=== PATIENT | male | born 1960 | race Caucasian/White ===

== ENCOUNTER 2018-08-26 12:35 | Outpatient (CLI) | payer BC, SELFPAY ==
--- NOTE | 2018-08-26 12:00 | DI.CT_ITS ---
SYMPTOMS/DIAGNOSIS: HEMOPTYSIS, COUG, R04.2 PE CHEST CTA: CT angiography was performed with multi slice acquisition and multi planar and 3D reconstruction. The study was carried out according to the usual protocol with an intravenous administration of 100 cc's of Omnipaque 350. There is no evidence of pulmonary embolic disease. There are two regions of increased density in the right lower lobe which could represent a pneumonitis. The possibility of masses can not be excluded. Aside from small regions of dependent atelectasis, no other regions of abnormality are apparent. There is no pleural effusion. There is no evidence of adenopathy. The heart is not enlarged. There is no evidence of right ventricular strain. There is no evidence of an aortic aneurysm. SUMMARY: Regions of increased density in the right lower lobe could represent a multi-focal pneumonitis. The possibility of a mass or masses can not be excluded and follow up imaging to clearing is recommended.
[2018-08-26] MEDS: Omnipaque 350 MG/ML 100 ML BTL IJ (12:47)
== END 2018-08-26 12:55 ==
PROVIDERS: PCP Internal Medicine; Visit Provider Internal Medicine
DX: R04.2 Hemoptysis; Z91.89 Other specified personal risk factors, not elsewhere classified; R05 Cough; R91.8 Other nonspecific abnormal finding of lung field
CPT/HCPCS: 36415; 71275; 82565; J3490

== ENCOUNTER 2019-05-27 06:58 | Outpatient (CLI) | payer BC, SELFPAY ==
[2019-05-27 14:02] LABS: CREATININE 1.17 mg/dL (0.70-1.30)
[2019-05-27 14:37] LABS: D-Dimer > 7500 ng/mlFEU (<500)
== END 2019-05-27 07:18 ==
PROVIDERS: PCP Internal Medicine; Visit Provider Family Medicine
DX: R06.09 Other forms of dyspnea (principal)
CPT/HCPCS: 36415; 82565; 85379

== ENCOUNTER 2019-05-27 07:25 | Outpatient (CLI) | payer BC, SELFPAY ==
--- NOTE | 2019-05-27 07:15 | DI.RAD_ITS ---
EXAM: XR CHEST 2V PA LATERAL CLINICAL HISTORY: Dyspnea, cough, history of PE, R06.00, ? PE TECHNIQUE: 2D digital imaging was performed. COMPARISON: CHEST FOR PULMONARY EMBOLUS from 03/01/2015 PORTABLE CHEST ONE VIEW from 03/01/2015 CT CHEST PE CTA from 08/26/2018 FINDINGS: MEDIASTINUM: Normal. HEART: Normal. PULMONARY VASCULATURE: Normal. LUNGS: There is a faint opacity in the right lung base laterally. The lungs are otherwise clear. PLEURAL SPACE: No pleural effusion or pneumothorax. BONE:Normal for the patient's age. OTHER FINDINGS:Normal. IMPRESSION: Faint opacity in the right lung base laterally. This may represent an infiltrate or mass. A CT scan of the chest is recommended for further evaluation. DATA REPOSITORY: RADIATION DOSE DELIVERED:
== END 2019-05-27 07:45 ==
PROVIDERS: PCP Internal Medicine; Visit Provider Family Medicine
DX: R06.09 Other forms of dyspnea (principal); R05 Cough; R91.8 Other nonspecific abnormal finding of lung field; Z86.711 Personal history of pulmonary embolism
CPT/HCPCS: 71046

== ENCOUNTER 2019-05-27 08:35 | Outpatient (CLI) | payer BC, SELFPAY ==
[2019-05-30 08:53] LABS: COVID-19 RT-PCR Result Not Detected (NotDetected)
== END 2019-05-27 08:55 ==
PROVIDERS: PCP Internal Medicine; Visit Provider Family Medicine
DX: R05 Cough (principal); R06.02 Shortness of breath
CPT/HCPCS: U0003

== ENCOUNTER 2019-05-27 17:02 | Emergency (ER) | payer BC, SELFPAY ==
[2019-05-27 17:10] VITALS: BP 160/95; PULSE 67; RESP 22; TEMP 36.8; O2SAT 99
--- NOTE | 2019-05-27 17:30 | DI.CT_ITS ---
EXAM: CT CHEST PE CTA CLINICAL HISTORY: chest pain right, sob, prior PE remotely TECHNIQUE: Axial CT angiography was performed with multi-slice acquisition and multi-planar and/or 3 D reconstructions. COMPARISON: CT CHEST PE CTA from 08/26/2018 FINDINGS: CT angiography was performed with a bolus infusion of 70 cc of Omnipaque 350. Images obtained throug h the upper abdomen show grossly unremarkable appearance of visualized portions of liver, spleen, eugene creas, and adrenals. No mediastinal or hilar adenopathy. No axillary or supraclavicular adenopathy. There are multiple pulmonary emboli, no central saddle embolus seen but emboli are present at the tristian ctions of right and left pulmonary arteries and lobar pulmonary arteries. There is an area of consol idation in the right lung base peripherally which has appearance consistent with pulmonary infarction . There is evidence of right heart strain with right ventricular diameter greater than left ventricu lar diameter and mild dilatation main pulmonary artery at 32 millimeters. No additional significant intrapulmonary abnormality seen. Tracheobronchial tree appears intact. IMPRESSION: Multiple lobar, segmental, and subsegmental pulmonary emboli with evidence of right heart strain as d escribed above the. Right basilar peripheral presumed pulmonary infarct noted.
[2019-05-27 17:34] LABS: Abs Immature Grans 0.02 k/cumm (0.0-0.09); Absolute Basophil Count 0.03 k/cumm (0.0-0.2); Absolute Eosinophil Count 0.14 k/cumm (0.0-0.7); Absolute Lymphocyte Count 2.45 k/cumm (1.2-3.4); Absolute Monocyte Count 0.63 k/cumm (0.11-0.7); Absolute Neutrophil Count 4.56 k/cumm (1.2-6.7); Basophils % 0.4; Eosinophils % 1.8; HCT 43.3 % (40.0-50.0); HGB 15.3 g/dL (13.5-17.5); Immature Grans % 0.3 %; Lymphocytes % 31.3; Mean Corp. HGB Concentration 35.3 g/dL (32.0-36.0); Mean Corpuscular Hemoglobin 30.3 pg (27.0-33.0); Mean Corpuscular Volume 85.7 fL (80-95); Mean Platelet Volume 10.5 fL (8.0-11.0); Neutrophils % 58.2; Platelet Count 245 x1000/uL (130-400); RBC 5.05 m/cumm (4.50-6.00); RBC Distribution Width 12.2 % (11.8-14.1); White Blood Cell Count 7.83 k/cumm (4.4-10.8)
[2019-05-27] MEDS: Omnipaque 350 MG/ML 100 ML BTL IJ (17:47)
[2019-05-27 17:52] LABS: ALT 24 U/L (16-63); AST 16 U/L (15-37); Albumin 3.7 g/dL (3.4-5.0); Alkaline Phosphatase 60 U/L (46-116); Anion Gap 9.2 mmol/L (3-11); BUN 24 mg/dL (7-18); Bilirubin, Total 0.6 mg/dL (0.2-1.0); CO2 28.8 mmol/L (21.0-32.0); CREATININE 1.08 mg/dL (0.70-1.30); Calcium 9.5 mg/dL (8.5-10.1); Chloride 103 mmol/L (98-107); Glucose 104 mg/dL (74-106); Potassium 4.3 mmol/L (3.5-5.1); Sodium 141 mmol/L (136-145); Total Protein 8.1 g/dL (6.4-8.2)
[2019-05-27 18:01] LABS: Troponin I 0.14 ng/Ml (<0.06)
[2019-05-27 18:06] VITALS: BP 139/88; PULSE 66; RESP 21; O2SAT 97
--- NOTE | 2019-05-27 18:18 | ED.GENADUL_ITS ---
Discharge Plan Disposition Patient Disposition: [facility] Condition: Serious Discharge Details Chief Complaint: RespSymp Clinical Impression: Pulmonary embolism, Elevated troponin Primary Care Provider: Gabi Perez ED Provider: Shoaib Saenz Home Meds and New Rx's Prescriptions: No Action [facility] 1 unit .Route QWEEK PRN (Reason: RIGHT BUTTOCK PAIN) Qty: 16 RF: 3 bupropion HCl 150 mg tablet extended release 24 hr 150 mg PO QAM Qty: 90 RF: 3 aspirin 81 MG tablet,chewable 81 mg PO DAILY RF: 0 apixaban 5 mg tablet 5 mg PO BID RF: 0 Discharge Data Discharge Date/Time-TO BE ENTERED AT DEPARTURE: 05/27/19 20:05 Medical Decision Making 59-year-old male with prior history of pulmonary embolism, hypercoagulable factor VIII, not currently anticoagulated, here with shortness of breath and right-sided chest pain for the past 4 days. Patient is not hypoxic but he is tachypneic. Patient mildly hypertensive on arrival. CT of the chest was interpreted by radiology: Large pulmonary emboli bilaterally with evidence of right heart strain. Possible pulmonary infarct in the right lower lobe. Screening ECG was reviewed and interpreted by me: Sinus rhythm 67 bpm, left axis deviation, no STEMI, flattening of T waves V2 and V3 which are new compared to prior from 03/01/2015. Will initiate treatment with Lovenox 1 mg/kg subcutaneous. Troponin is elevated. BNP was sent specifically as prognostic indicator of severity clot burden. 18:30 --I contacted [facility] transfer center to request emergent transfer. Awaiting callback. CT already sent for review. 19:08 --I spoke with Dr. Meyer and discussed ED presentation and course including diagnostics, he reviewed CT scan, he agrees with transfer and will accept on behalf of Dr. Figueredo. Awaiting bed placement. HPI General Mode of arrival: ambulatory . Date/Time Provider Initiated Documentation: 05/27/19 17:07 . Limitations to Documentation: no limitations . Information obtained by: patient . HPI Narrative: 59-year-old male with prior history of pulmonary embolism, factor VIII hypercoagulability, here with chief complaint of shortness of breath. Shortness of breath started 4 days ago and has persisted. Symptoms are moderate to severe and worse with exertion. He has associated moderate to severe right-sided chest pain that was worse yesterday. Improved today. He does note temperature of 100.0 that lasted for 30 seconds a couple of nights ago. No fever now. No recent long distance travel and no known sick contacts related to COVID-19 illness. Related Data Home Medications Medication Instructions Recorded Confirmed aspirin 81 mg PO DAILY tab-cap 09/22/17 05/27/19 bupropion HCl 150 mg 24 hr tablet, 150 mg PO QAM #90 tab 10/13/18 05/27/19 extended release [facility] 1 unit .ROUTE QWEEK PRN #16 unit 03/10/19 05/26/19 apixaban 5 mg tablet 5 mg PO BID 05/30/19 Previous Rx's Medication Instructions Recorded bupropion HCl 150 mg 24 hr tablet, 150 mg PO QAM #90 tab 10/13/18 extended release [facility] 1 unit .ROUTE QWEEK PRN #16 unit 03/10/19 Allergies Allergy/AdvReac Type Severity Reaction Status Date / Time Sulfa (Sulfonamide Allergy Unknown unknown Verified 05/27/19 17:19 Antibiotics) General Stated Complaint: RespSymp MOSHE: 3 Review of Systems All systems reviewed & are unremarkable except as noted in HPI and below Constitutional Constitutional: Reports as per HPI Cardiovascular Cardiovascular: Reports as per HPI Respiratory Respiratory: Reports as per HPI [facility] Medical History Depressive disorder, not elsewhere classified (Acute 05/27/12) Surgical History debridement, rgt ankle (08/30/14) Dr. Dillon open removal loose body, rgt ankle (08/30/14) Family History Mother , stroke at age 54. Stroke Father No problems noted. 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 What type of physical activity do you participate in: regular exercise Frequency: 5-6 times per week Seatbelt use: always Drive intox or ride w/intox truck driver salesperson: No Working smoke detector in home: Yes Fire extinguisher in home: Yes Carbon monox detector in home: Yes Do you feel safe at home: Yes Do you feel safe in your relationship?: Yes Exam Const General: cooperative HENMT Mouth: moist mucous membranes Eyes Conjunctivae: normal conjunctivae Sclera: normal sclerae Neck Neck: trachea midline and supple Resp Auscultation: clear to auscultation bilaterally, no rales, no rhonchi and no wheezes Cardio Jugular venous pressure: no JVD Rate: regular rate and not tachycardic Rhythm: regular rhythm GI Palpation: soft, not firm, no guarding, no masses, not rigid and nontender Skin General skin exam: no rashes or lesions noted Neuro General: patient alert, patient awake, patient oriented x3 and tone normal Extrem General: no calf tenderness and no edema Psych Appearance: grossly normal Mental Status: mental status grossly normal Course Vital Signs Vital signs: Vital Signs Temperature 36.8 C 05/27/19 17:10 Pulse 67 05/27/19 17:10 Respiratory Rate 22 05/27/19 17:10 Blood Pressure 160/95 H 05/27/19 17:10 Pulse Oximetry 99 05/27/19 17:10 Temperature 36.8 C 05/27/19 17:10 Pulse 66 05/27/19 18:06 Respiratory Rate 21 05/27/19 18:06 Respiratory Effort 05/27/19 17:45 Respiratory Depth Normal 05/27/19 17:45 Blood Pressure 139/88 05/27/19 18:06 Pulse Oximetry 97 05/27/19 18:06 Oxygen Delivery Method Room Air 05/27/19 18:06 Oxygen Flow Rate 0 05/27/19 18:06 Pain Level 3 05/27/19 17:10 Lab/Test Results Lab/Test Results: Laboratory Tests Range/Units 05/27/19 05/27/19 17:25 17:25 WBC (4.4-10.8) k/cumm 7.83 RBC (4.50-6.00) m/cumm 5.05 Hgb (13.5-17.5) g/dL 15.3 Hct (40.0-50.0) % 43.3 MCV (80-95) fL 85.7 MCH (27.0-33.0) pg 30.3 MCHC (32.0-36.0) g/dL 35.3 RDW (11.8-14.1) % 12.2 Plt Count (130-400) x1000/uL 245 MPV (8.0-11.0) fL 10.5 Immature Gran % % 0.3 Neutrophils % 58.2 Lymphocytes % 31.3 Monocytes % 8.0 Eosinophils % 1.8 Basophils % 0.4 Absolute Neutrophils (1.2-6.7) k/cumm 4.56 Absolute Lymphocytes (1.2-3.4) k/cumm 2.45 Absolute Monocytes (0.11-0.7) k/cumm 0.63 Absolute Eosinophils (0.0-0.7) k/cumm 0.14 Absolute Basophils (0.0-0.2) k/cumm 0.03 Sodium (136-145) mmol/L 141 Potassium (3.5-5.1) mmol/L 4.3 Chloride (98-107) mmol/L 103 Carbon Dioxide (21.0-32.0) mmol/L 28.8 Anion Gap (3-11) mmol/L 9.2 BUN (7-18) mg/dL 24 H Creatinine (0.70-1.30) mg/dL 1.08 Estimated GFR/1.73 m2 (mL/min/1.73m2) >= 60.00 Glucose (74-106) mg/dL 104 Calcium (8.5-10.1) mg/dL 9.5 Total Bilirubin (0.2-1.0) mg/dL 0.6 AST (15-37) U/L 16 ALT (16-63) U/L 24 Alkaline Phosphatase (46-116) U/L 60 Troponin I (<0.06) ng/Ml 0.14 H* Total Protein (6.4-8.2) g/dL 8.1 Albumin (3.4-5.0) g/dL 3.7 Critical Care Time Critical Care Time Critical Care Time: Yes Total Critical Care Time: 45 Attestation: I spent greater than 45 minutes addressing this patient's immediate life threats
--- NOTE | 2019-05-27 18:23 | DI.VRAD_ITS ---
Addendum created by Augustus Begum MD on 05/27/2019 6:31:14 PM EDT This report contains findings that may be critical to patient care. The findings were verbally communicated via telephone conference with CLOVER Kay at 6:30 PM EDT on 05/27/2019. The findings were acknowledged and understood. Initial report created on 05/27/2019 6:22:46 PM EDT PROCEDURE INFORMATION: Exam: CT Angiography Chest With Contrast Exam date and time: 05/27/2019 5:35 PM Age: 59 years old Clinical indication: Pain and abnormal findings; Abnormal diagnostic tests; Elevated d-dimer; Shortness of breath; Right-sided chest pain; Patient HX: Chest pain right, SOB, prior pe remotely TECHNIQUE: Imaging protocol: Computed tomographic angiography of the chest with intravenous contrast. 3D rendering: MIP and/or 3D reconstructed images were created by the technologist. COMPARISON: CT CHEST PE CTA 08/26/2018 12:37 PM FINDINGS: There are multiple large pulmonary emboli bilaterally. No central saddle embolus. There is suspected right ventricular strain. The RV/LV is approximately 1.4. The thoracic aorta is unremarkable without aneurysm or dissection. There is a wedge-shaped pleural-based opacity at the right base suspicious for a pulmonary infarct. No pleural effusion or pneumothorax. The visualized abdominal structures are unremarkable. No fracture. IMPRESSION: 1. Large pulmonary emboli bilaterally with evidence of right heart strain. 2. Possible pulmonary infarct in the right lower lobe. Dictated and Authenticated by: Augustus Begum MD. Ordering:SIRENA Cramer MD
[2019-05-27 18:25] LABS: NT-proBNP 794 pg/mL (<300)
--- NOTE | 2019-05-27 18:27 | NUR.NOTE ---
provider in with pt giving update on CT results. pt yelling and cursing loudly, told provider to come back. continued to curse and banged wall.
[2019-05-27] MEDS: Enoxaparin 80 MG/0.8 ML SYR 75 MG SC (18:52)
[2019-05-27 18:53] VITALS: BP 166/92; RESP 18; O2SAT 96
--- NOTE | 2019-05-27 19:43 | NUR.NOTE ---
report given to Cassei on 4E at [facility]. pt will be going to [facility]
[2019-05-27 19:48] VITALS: BP 148/96; PULSE 70; RESP 18; O2SAT 96
[2019-05-27] MEDS: LORazepam 0.5 MG TAB PO (19:52)
== END 2019-05-27 20:05 | disposition short-term general hospital (02) ==
PROVIDERS: Emergency Provider Student in an Organized Health Care Education/Training Program; PCP Internal Medicine
DX: I26.99 Other pulmonary embolism without acute cor pulmonale (principal); R74.8 Abnormal levels of other serum enzymes
CPT/HCPCS: 71275; 80053; 93005; 96372; 99285; 99291; 83880; 84484; 85025; 93010; J1650; J3490

== ENCOUNTER 2019-12-27 03:43 | Outpatient (CLI) | payer BC, SELFPAY ==
[2019-12-30 20:58] LABS: Patient Race White; SARS-CoV-2 RNA Undetected (Undetected); SARS-CoV-2 Specimen Source Nasal
== END 2019-12-27 04:03 ==
PROVIDERS: PCP Internal Medicine; Visit Provider Family Medicine
DX: J06.9 Acute upper respiratory infection, unspecified (principal)
CPT/HCPCS: U0003

== ENCOUNTER 2020-06-12 02:32 | Outpatient (CLI) | payer BC, SELFPAY ==
[2020-06-12 14:43] LABS: Calculated LDL 128 mg/dL (<100); Cholesterol 215 mg/dL (<200); HDL Cholesterol 61 mg/dL (40-60); TSH (W/Ref FT4) 2.89 uIU/mL (0.36-3.74); Triglyceride 130 mg/dL (<150)
== END 2020-06-12 02:33 | disposition home or self-care (01) ==
LOC: LBO 02:32
PROVIDERS: PCP Internal Medicine; Visit Provider Internal Medicine
DX: E78.00 Pure hypercholesterolemia, unspecified (principal); R79.89 Other specified abnormal findings of blood chemistry
CPT/HCPCS: 36415; 80061; 84443

== ENCOUNTER 2021-07-22 10:32 | Outpatient (REF) | payer BC, SELFPAY ==
[2021-07-25 11:14] LABS: Chlamydia Result Negative (Negative); GC Result Negative (Negative)
== END 2021-07-22 10:33 | disposition home or self-care (01) ==
LOC: LBN 10:32
PROVIDERS: Family Medicine; PCP Internal Medicine; Referring Provider Internal Medicine; Visit Provider Internal Medicine
DX: Z11.3 Encounter for screening for infections with a predominantly sexual mode of transmission (principal)
CPT/HCPCS: 87491; 87591

== ENCOUNTER 2021-07-25 04:03 | Outpatient (CLI) | payer BC, SELFPAY ==
[2021-07-26 10:00] LABS: HIV-1/2 Ag & Ab Screen Negative (Negative)
[2021-07-26 10:28] LABS: Syphilis Serology (RPR) Negative (Negative)
[2021-07-26 10:48] LABS: HBs Antibody, Qual Negative (See Note); HBs Antibody, Quant <3.1 mIU/mL (See Note); Hepatitis B Core Antibody Negative (Negative); Hepatitis B surface Ag Negative (Negative); Hepatitis C Ab w Rflx HCV PCR Negative (Negative)
== END 2021-07-25 04:04 | disposition home or self-care (01) ==
LOC: LBO 04:03
PROVIDERS: Absent Provider Family Medicine; PCP Internal Medicine; Visit Provider Family Medicine
DX: Z11.3 Encounter for screening for infections with a predominantly sexual mode of transmission (principal); Z11.4 Encounter for screening for human immunodeficiency virus [HIV]; Z11.59 Encounter for screening for other viral diseases
CPT/HCPCS: 36415; 86704; 86706; 86803; 87340; 87389; 86592

== ENCOUNTER 2021-11-17 08:20 | Emergency (ER) | payer BC, SELFPAY ==
[2021-11-17 08:58] VITALS: BP 138/110; PULSE 98; RESP 14; TEMP 36.8; O2SAT 96
--- NOTE | 2021-11-17 11:31 | W.ED.GENAD ---
Discharge Plan Disposition Patient Disposition: HOME Condition: Stable Discharge Details Clinical Impression: Lumbar radiculopathy Primary Care Provider: Gabi Perez ED Provider: Riana Martines Home Meds and New Rx's Prescriptions: New dexamethasone [Decadron] 4 mg tablet 4 mg PO DAILY Qty: 14 0RF Rx Instructions: 1 tab daily for 10 days, 1/2 tablet day for 7 days and dc morphine 15 mg tablet 15 mg PO BID PRNQty: 10 0RF Continued cyclobenzaprine 10 mg tablet 10 mg PO TID PRN (Reason: muscle spasm) Qty: 30 0RF gabapentin 300 mg capsule 300 mg PO TID Qty: 90 0RF Rx Instructions: Start with 300 mg once daily, then increase as tolerated to twice daily and three times daily apixaban 5 mg tablet 5 mg PO BID Qty: 180 3RF prednisone 50 mg tablet 50 mg PO DAILY Qty: 7 0RF Discharge Instructions Additional Instructions: take decadron as prescribed morphine is addictive and should be used sparingly. do not operate your vehicle for 8 hours after taking this medication no lifting >5 lbs pcp recheck tomorrow i've attempted to order an oupatient MRI for you, however generally needs authorization if your pain worsens, you develop fever, you have retention of urine, or weakness to your extremities, please return to ED for reassessment Referrals: Gabi Perez MD [Primary Care Provider] - 1 day Medical Decision Making Patient was made aware that he likely will need an MRI at this point, however we do not have the ability in the hospital on weekends to perform this imaging test Patient immediately states this is a waste of my time, this will now cost $25,000 for nothing Any patient aware that we would still like to assess him and treat his pain and then decide the next steps, patient continues to repeat this is a waste of my time He has no obvious signs of cauda equina syndrome clinically on my assessment, however patient was relatively uncooperative and quite flustered and difficult to assess I offered to treat patient with pain medication and let him know that if he had arrived at the very least we can make him more comfortable and she tells me that this is ridiculous Given patient's level of pain and exam findings, I did order morphine and Decadron and made an attempt to order an outpatient MRI for tomorrow Has also made aware that he can return tomorrow and MRI would be available at this point versus admission to hospital for pain control, unfortunately examining this patient was a challenge and as there was no clear evidence of cauda equina syndrome clinically, he was discharged home with pain medication and urged to follow-up closely in the outpatient setting DTRs are intact, strength and sensation was intact distally, patient has reproducible lower back pain without any clear evidence of trauma or bruising Or weakness patient was ambulatory into the emergency department without notable foot drop or weakness, holding his back and hunched over in pain Medical Records Medical records reviewed: Yes I reviewed the patient's medical records. HPI General Date/Time Provider Initiated Documentation: 11/17/21 08:21. HPI Narrative: This 61-year-old male presents with report of persistent back pain.. He states that the pain is worsening despite taking his at home medications which is why he presents. He denies any fever or chills. He denies any new strength or sensation change. He denies any abdominal discomfort. He denies any illicit drug use. States that he has had slight change in his urinary flow but is able to empty completely and denies any increased stream or any sort of retention. Denies any incontinence of bowel or bladder. Denies groin numbness Related Data Home Medications Medication Instructions Recorded Confirmed apixaban 5 mg tablet 5 mg PO BID #180 tabs 07/25/21 11/13/21 prednisone 50 mg tablet 50 mg PO DAILY #7 tabs 10/29/21 11/13/21 cyclobenzaprine 10 mg tablet 10 mg PO TID PRN muscle spasm #30 11/13/21 11/13/21 tab-caps gabapentin 300 mg capsule 300 mg PO TID #90 caps 11/13/21 11/13/21 dexamethasone 4 mg tablet 4 mg PO DAILY #14 tabs 11/17/21 (Decadron) morphine 15 mg immediate release 15 mg PO BID PRN #10 tabs 11/17/21 tablet Previous Rx's Medication Instructions Recorded apixaban 5 mg tablet 5 mg PO BID #180 tabs 07/25/21 prednisone 50 mg tablet 50 mg PO DAILY #7 tabs 10/29/21 cyclobenzaprine 10 mg tablet 10 mg PO TID PRN muscle spasm #30 11/13/21 tab-caps gabapentin 300 mg capsule 300 mg PO TID #90 caps 11/13/21 dexamethasone 4 mg tablet 4 mg PO DAILY #14 tabs 11/17/21 (Decadron) morphine 15 mg immediate release 15 mg PO BID PRN #10 tabs 11/17/21 tablet Allergies Allergy/AdvReac Type Severity Reaction Status Date / Time Sulfa (Sulfonamide Allergy Unknown unknown Verified 11/13/21 11:44 Antibiotics) General Stated Complaint: Nk/Back Pain MOSHE: 5 Review of Systems Narrative: Review of systems obtained x10 and negative aside from medication HPI PFSH All Active Problems (Updated 11/17/21 @ 08:45 by MODESTO Ortiz) Lumbago with sciatica, left side (Acute) Puncture wound of ankle, left (Acute) Alcohol abuse (Chronic) Avulsion fracture of ankle (Acute ~02/2020) Left, [facility] Abnormal finding on thyroid function test (Acute) Chronic anticoagulation (Chronic 05/2019) Pulmonary embolism with acute cor pulmonale (Acute) 05/27/19 Large (B) PE's w/ (R) heart strain Piriformis syndrome (Acute) Depressive disorder, not elsewhere classified (Chronic 05/27/12) [place] cardiac risk <10% in next 10 years (Acute 01/28/17) 2017: 4.6% Lumbar radiculopathy (Acute 08/24/17) [facility] secondary to stiff hip and early osteoarthritis Obstructive sleep apnea (Acute 05/31/15) Mild. 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 Medical History Pulmonary embolism Pulmonary embolus with infarction (02/28/15) Surgical History debridement, rgt ankle (08/30/14) Dr. Dillon open removal loose body, rgt ankle (08/30/14) Family History Mother , stroke at age 54. Stroke Father No problems noted. 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 What type of physical activity do you participate in: regular exercise Frequency: 5-6 times per week Seatbelt use: always Drive intox or ride w/intox corrugated fastener driver: No Working smoke detector in home: Yes Fire extinguisher in home: Yes Carbon monox detector in home: Yes Do you feel safe at home: Yes Do you feel safe in your relationship?: Yes Exam Const General: cooperative, comfortable and no acute distress Eyes Pupils: PERRL Resp Effort & Inspection: normal respiratory effort Cardio Rate: regular rate GI Inspection: normal to inspection Other: no abdominal bruit or pulsatile mass Back/Spine/Pelvis Back: no CVA tenderness Other: lumbar spine tenderness and paraspinal tenderness Skin General skin exam: no rashes or lesions noted Neuro General: patient alert and patient oriented x3 Other: sensation intact distally to bilateral LE distal pulses intact Course Vital Signs Vital signs: Vital Signs Temperature 36.8 C 11/17/21 08:58 Pulse 98 H 11/17/21 08:58 Respiratory Rate 14 11/17/21 08:58 Blood Pressure 138/110 H 11/17/21 08:58 Pulse Oximetry 96 11/17/21 08:58 Temperature 36.8 C 11/17/21 08:58 Temperature Source Skin 11/17/21 08:58 Pulse 98 H 11/17/21 08:58 Respiratory Rate 14 11/17/21 08:58 Respiratory Effort 11/17/21 09:17 Blood Pressure 138/110 H 11/17/21 08:58 Blood Pressure Position Sitting 11/17/21 08:58 Pulse Oximetry 96 11/17/21 08:58 Oxygen Delivery Method Room Air 11/17/21 08:58 Oxygen Flow Rate 0 11/17/21 08:58 Pain Level 10 11/17/21 08:58 PAWSS Have you Been Recently Intoxicated or Drunk Within the Last 30 days?: No Have you Ever Experienced Previous Episodes of Alcohol Withdrawal?: No Have you ever Experienced Withdrawal Seizures?: No Have you ever Experienced Delirium Tremens(DT)s?: No Have you ever undergone Alcohol Rehabilitation Treatment (i.e, inpt ot outpatient treatment programs)?: No Have you ever Experienced Blackouts?: No Have you ever Combined Alcohol with other Downers within the last 90 days?: No Have you ever Combined Alcohol with any other Substance of Abuse during the last 90 days?: No Positive Blood Alcohol level on Presentation? [PCS.BAL]: No Evidence of Increased Autonomic Activity (i.e. HR>120, tremor, sweating, agitation, nausea)?: No Result: 0
== END 2021-11-17 09:00 | disposition home or self-care (01) ==
PROVIDERS: Emergency Provider Physician Assistant; PCP Internal Medicine
DX: M54.16 Radiculopathy, lumbar region (principal)
CPT/HCPCS: 99283; 99284

== ENCOUNTER 2021-11-17 12:08 | Emergency (ER) | payer BC, SELFPAY ==
[2021-11-17 12:42] VITALS: BP 191/84; PULSE 81; RESP 18; TEMP 37; O2SAT 98
--- NOTE | 2021-11-17 13:25 | W.ED.GENAD ---
Discharge Plan Disposition Patient Disposition: HOME Condition: Stable Discharge Details Clinical Impression: Lumbar back pain with radiculopathy affecting left lower extremity, Elevated blood pressure reading Primary Care Provider: Gabi Perez ED Provider: Shoaib Saenz Home Meds and New Rx's Prescriptions: Continued dexamethasone [Decadron] 4 mg tablet 4 mg PO DAILY Qty: 14 0RF Rx Instructions: 1 tab daily for 10 days, 1/2 tablet day for 7 days and dc apixaban 5 mg tablet 10 mg PO BID No Action cyclobenzaprine 10 mg tablet 10 mg PO TID PRN (Reason: muscle spasm) Qty: 30 0RF bupropion HCl [Wellbutrin XL] 150 mg tablet extended release 24 hr 150 mg PO QAM Qty: 90 0RF gabapentin 300 mg capsule 300 mg PO DAILY morphine 15 mg tablet 15 mg PO BID MDD 30 mg PRN (Reason: pain) Qty: 14 0RF Discharge Instructions Instructions: Lumbar Radiculopathy (ED) Additional Instructions: Please avoid any activities that worsen back pain. Use lidocaine patches. These are available [id number]. Dose according to label. Please take ibuprofen over the counter. Take 600mg by mouth every 6 hours as needed for pain. Please take acetaminophen (tylenol) - 650mg every 6 hours by mouth as needed for pain. Only use morphine if pain is severe and refractory to all other treatment. Please contact your primary care physician to arrange follow-up. Your blood pressure was elevated today. Please be sure to discuss this with your primary care physician. If blood pressure remains elevated additional treatment and diagnostics may be necessary. Return to the ER immediately for any worsening or new concerning symptoms including difficulty with bowel or bladder dysfunction including urinary incontinence or inability to urinate or any new focal weakness or numbness. Referrals: [facility] [Provider Group] Discharge Data Discharge Date/Time-TO BE ENTERED AT DEPARTURE: 11/17/21 16:56 Medical Decision Making 61-year-old male here with 1 month of left low back pain. Pain progressive and severe over the past few days. Pain radiating into left leg with some paresthesias left anterior lower leg. No focal weakness. No bowel or bladder dysfunction. Normal rectal tone. No saddle anesthesia. Suspect disc herniation versus muscle spasm with nerve root irritation. Patient was given Dilaudid 1 mg IM, Toradol 30 mg IM, Valium 2 mg p.o., and lidocaine patch. Patient was observed in the emergency department. On reassessment, patient noted significant improvement in pain. Patient requesting discharge. Plan for outpatient follow-up with PCP and likely spinal specialist pending MRI of the spine. I will asked the care management assist in expediting outpatient MRI. Disposition decision was made weighing the risks and benefits of hospitalization versus outpatient treatment, the risk for further decompensation, and the patient's wishes. The patient was stable and requested discharge. Prior to discharge, my usual and customary return precautions were reviewed with the patient - this included follow-up instructions and reason to return to the emergency department if condition worsens, does not improve as expected, or other new concerns arise. HPI General Date/Time Provider Initiated Documentation: 11/17/21 12:12. Limitations to Documentation: no limitations. Information obtained by: patient. HPI Narrative: 61-year-old male here with chief complaint of left low back pain. Patient notes he has had pain in his left low back for the past 1 month. Pain progressive and now severe over the past few days. Pain radiating into left leg with some associated paresthesias left anterior lower leg. No focal weakness. No bowel or bladder dysfunction. Patient denies history of trauma. Related Data Home Medications Medication Instructions Recorded Confirmed apixaban 5 mg tablet 10 mg PO BID 11/17/21 11/28/21 dexamethasone 4 mg tablet 4 mg PO DAILY #14 tabs 11/17/21 11/28/21 (Decadron) bupropion HCl 150 mg 24 hr tablet, 150 mg PO QAM #90 tab-caps 11/21/21 11/28/21 extended release (Wellbutrin XL) cyclobenzaprine 10 mg tablet 10 mg PO TID PRN muscle spasm #30 11/21/21 11/28/21 tab-caps gabapentin 300 mg capsule 300 mg PO DAILY 11/28/21 11/28/21 morphine 15 mg immediate release 15 mg PO BID PRN pain #14 tabs 11/28/21 11/28/21 tablet Previous Rx's Medication Instructions Recorded dexamethasone 4 mg tablet 4 mg PO DAILY #14 tabs 11/17/21 (Decadron) bupropion HCl 150 mg 24 hr tablet, 150 mg PO QAM #90 tab-caps 11/21/21 extended release (Wellbutrin XL) cyclobenzaprine 10 mg tablet 10 mg PO TID PRN muscle spasm #30 11/21/21 tab-caps morphine 15 mg immediate release 15 mg PO BID PRN pain #14 tabs 11/28/21 tablet Allergies Allergy/AdvReac Type Severity Reaction Status Date / Time Sulfa (Sulfonamide Allergy Unknown unknown Verified 11/28/21 14:08 Antibiotics) General Stated Complaint: Orthopedic MOSHE: 4 Review of Systems All systems reviewed & are unremarkable except as noted in HPI and below Constitutional Constitutional: Denies fever(s) Musculoskeletal Musculoskeletal: Reports as per HPI Neurologic Neurologic: Reports as per HPI PFSH All Active Problems Hyperlipidemia, unspecified (Chronic) 11/2021 labs: 10-year ASCVD risk = ~9.0% History of pulmonary embolus (PE) (Chronic) x2 (2014, 2019); chronic anticoagulation Lumbar nerve root compression (Acute) Lumbar disc herniation with radiculopathy (Acute) Lumbar back pain with radiculopathy affecting left lower extremity (Acute) Alcohol abuse (Chronic) Chronic anticoagulation (Chronic 05/2019) Piriformis syndrome (Acute) Depressive disorder, not elsewhere classified (Chronic 05/27/12) [place] cardiac risk <10% in next 10 years (Acute 01/28/17) 2017: 4.6% Lumbar radiculopathy (Acute 08/24/17) [facility] secondary to stiff hip and early osteoarthritis Obstructive sleep apnea (Acute 05/31/15) Mild. 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 Dillon open removal loose body, rgt ankle (08/30/14) Family History Mother , stroke at age 54. Stroke Father No problems noted. 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 What type of physical activity do you participate in: regular exercise Frequency: 5-6 times per week Seatbelt use: always Drive intox or ride w/intox commercial driver's license driver: No Working smoke detector in home: Yes Fire extinguisher in home: Yes Carbon monox detector in home: Yes Do you feel safe at home: Yes Do you feel safe in your relationship?: Yes Exam Const General: cooperative HENMT Head: normocephalic and atraumatic Eyes Conjunctivae: normal conjunctivae Sclera: normal sclerae Neck Neck: trachea midline and supple Resp Auscultation: clear to auscultation bilaterally, no rales, no rhonchi and no wheezes Cardio Rate: regular rate and not tachycardic Rhythm: regular rhythm GI Palpation: soft, not firm, no guarding, no masses, not rigid and nontender Rectal Exam: normal sphincter tone Other: rectal performed with director of federal sales present Back/Spine/Pelvis Back: No erythema and No warmth Cervical Spine: No cervical spinal tenderness and No step off deformity Thoracic/Lumbar Spine: paraspinal tenderness (left), No thoracic spinal tenderness and No lumbar spinal tenderness Skin General skin exam: no rashes or lesions noted Neuro General: patient alert, patient awake, patient oriented x3 and tone normal Extrem General: no edema Psych Appearance: grossly normal Mental Status: mental status grossly normal Speech and Movement: speech and movement normal Course Vital Signs Vital signs: Vital Signs Temperature 37 C 11/17/21 12:42 Pulse 81 11/17/21 12:42 Respiratory Rate 18 11/17/21 12:42 Blood Pressure 191/84 H 11/17/21 12:42 Pulse Oximetry 98 11/17/21 12:42 Temperature 37 C 11/17/21 12:42 Temperature Source Tympanic 11/17/21 12:42 Pulse 81 11/17/21 12:42 Respiratory Rate 18 11/17/21 12:42 Respiratory Effort 11/17/21 12:44 Blood Pressure 191/84 H 11/17/21 12:42 Blood Pressure Position Supine 11/17/21 12:42 Pulse Oximetry 98 11/17/21 12:42 Oxygen Delivery Method Room Air 11/17/21 12:42 Oxygen Flow Rate 0 11/17/21 12:42 Pain Level 9 11/17/21 12:42
[2021-11-17] MEDS: diazePAM 2 MG TAB PO (13:35)
[2021-11-17] MEDS: HYDROmorphone 2 MG/ML SYR 1 MG IM (13:37)
[2021-11-17] MEDS: Ketorolac 30 MG/ML VIAL IM (13:41)
[2021-11-17] MEDS: Lidocaine 5% Patch 1 PATCH TP (13:42)
== END 2021-11-17 16:56 | disposition home or self-care (01) ==
PROVIDERS: Emergency Provider Student in an Organized Health Care Education/Training Program; PCP Internal Medicine
DX: M54.16 Radiculopathy, lumbar region (principal); R03.0 Elevated blood-pressure reading, without diagnosis of hypertension
CPT/HCPCS: 96372; 99284; J1170; J1885

== ENCOUNTER → 2021-11-19 02:26 | Outpatient (CLI) | payer BC, SELFPAY ==
--- NOTE | 2021-11-19 06:45 | DI.MRI_ITS ---
Exam(s) MR LUMBAR SPINE WO EXAM: MR LUMBAR SPINE WO CLINICAL HISTORY: r/o disc herniation,LT LEG WEAKNESS,DECREASED URINATION,LUMBAGO,R34,R29.898. TECHNIQUE: Multiplanar multisequence MRI of the Lumbar spine was performed. COMPARISON: No previous for comparison. FINDINGS: The examination is limited due to patient motion artifact. Bones: The last intervertebral disc space is designated the L5/S1 level for the numbering purpose of this examination. The vertebral body heights are well maintained. Alignment is satisfactory. Mild d egenerative endplate signal changes are present. Endplate osteophytes are seen at multiple levels in the lumbar spine. Cord: The conus tip ends at the L1 level. It is of normal size and signal intensity. T12-L1: No disc herniations or bulges are present. No central spinal canal or neural foraminal stenos is. L1-2: No disc herniations or bulges are present. No central spinal canal or neural foraminal stenosis . L2-3: There is a mild diffuse disc bulge. No central spinal canal or neural foraminal stenosis. L3-4: No disc herniations or bulges are present. No significant central spinal canal stenosis is seen . There is mild narrowing of the neural foramen bilaterally.Facet arthropathy is present. L4-5: There is a small disc herniation with extrusion posterior to the L5 vertebral body. It appears to be left-sided causing left lateral recess stenosis and compressing the left L5 nerve root. Facet arthropathy is present. These all contribute to cause mild narrowing of the central spinal canal. There is [id number] bilateral neural foraminal stenosis. L5-S1: No disc herniations or bulges are present. No central spinal canal or neural foraminal stenosi s.Degenerative facet arthropathy is present. Soft tissues: The visualized SI joints and sacrum are well maintained. The paraspinal soft tissues ar e unremarkable. IMPRESSION: 1. Left-sided extruded disc at L4-5 causing left lateral recess stenosis and compressing the left L5 nerve root. 2. Multilevel degenerative changes in the lumbar spine as described above. The findings are most mar ked at L3-4 and L4-L5. DATA REPOSITORY:
== END ==
PROVIDERS: PCP Internal Medicine; Visit Provider Nurse Practitioner Family
DX: M54.42 Lumbago with sciatica, left side (principal); R29.898 Other symptoms and signs involving the musculoskeletal system; R34 Anuria and oliguria; M51.26 Other intervertebral disc displacement, lumbar region; M47.816 Spondylosis without myelopathy or radiculopathy, lumbar region
CPT/HCPCS: 72148

== ENCOUNTER 2021-11-28 13:55 | Outpatient (CLI) | payer BC, SELFPAY ==
--- NOTE | 2021-11-28 13:45 | RT.EKG_ITS ---
APPROVED REPORT Exam: Resting ECG Reason for Exam: Preop evaluation Patient Location: O HR:67 bpm ECG Measurements Heart Rate 67 AXIS [place] 153 P 38 QRSd 136 QRS 10 QT 435 T 41 QTc 460 Conclusion Sinus rhythm...normal P axis, V-rate 50- 99 PVC Consider LVH
== END 2021-11-28 13:56 | disposition home or self-care (01) ==
LOC: DI.KIM 13:56
PROVIDERS: PCP Nurse Practitioner Family; Visit Provider Nurse Practitioner Family
DX: Z01.818 Encounter for other preprocedural examination (principal); R94.31 Abnormal electrocardiogram [ECG] [EKG]
CPT/HCPCS: 93010

== ENCOUNTER 2021-12-02 02:52 | Outpatient (CLI) | payer BC, SELFPAY ==
[2021-12-02 10:00] LABS: Abs Immature Grans 0.05 10^3/uL (0.0-0.06); Absolute Basophil Count 0.04 10^3/uL (0.0-0.2); Absolute Eosinophil Count 0.07 10^3/uL (0.0-0.7); Absolute Lymphocyte Count 1.99 10^3/uL (1.2-3.4); Absolute Monocyte Count 0.57 10^3/uL (0.1-0.8); Absolute Neutrophil Count 5.02 10^3/uL (1.2-6.7); Basophils % 0.5; Eosinophils % 0.9; HCT 43.2 % (40.0-50.0); HGB 14.9 g/dL (13.5-17.5); Immature Grans % 0.6; Lymphocytes % 25.7; MCH 30.9 pg (27.0-33.0); MCHC 34.5 % (32.0-36.0); MCV 90 fL (80-95); MPV 9.7 fL (8.0-11.0); Monocytes % 7.4; Neutrophils % 64.9; Platelet Count 212 10^3/uL (130-400); RBC 4.82 10^6/uL (4.36-5.78); RDW 12.4 % (11.8-14.1); WBC 7.74 10^3/uL (4.4-10.8)
[2021-12-02 10:26] LABS: ALT 41 U/L (16-63); AST 24 U/L (15-37); Albumin 3.3 g/dL (3.4-5.0); Alkaline Phosphatase 54 U/L (46-116); Anion Gap 5.2 mmol/L (3-11); BUN 19 mg/dL (7-18); Bilirubin, Total 0.7 mg/dL (0.2-1.0); CO2 31.8 mmol/L (21.0-32.0); CREATININE 1.1 mg/dL (0.70-1.30); Calcium 9.3 mg/dL (8.5-10.1); Calculated LDL 140 mg/dL (<100); Chloride 101 mmol/L (98-107); Cholesterol 264 mg/dL (<200); Estimated GFR 76.37 (mL/min/1.73m2); Glucose 88 mg/dL (74-106); HDL Cholesterol 83 mg/dL (40-60); Potassium 4.4 mmol/L (3.5-5.1); Sodium 138 mmol/L (136-145); Total Protein 7.2 g/dL (6.4-8.2); Triglyceride 205 mg/dL (<150)
== END 2021-12-02 02:53 | disposition home or self-care (01) ==
LOC: LBO 02:52
PROVIDERS: PCP Nurse Practitioner Family; Visit Provider Nurse Practitioner Family
DX: Z13.220 Encounter for screening for lipoid disorders (principal); Z13.1 Encounter for screening for diabetes mellitus; Z51.81 Encounter for therapeutic drug level monitoring
CPT/HCPCS: 36415; 80053; 80061; 85025

== ENCOUNTER 2022-08-28 09:54 | Outpatient (CLI) | payer BC, SELFPAY ==
--- NOTE | 2022-08-28 09:45 | RT.EKG_ITS ---
APPROVED REPORT Exam: Resting ECG Reason for Exam: r.o ischemia or infarct Patient Location: O HR:57 bpm ECG Measurements Heart Rate [address] 185 P 42 QRSd 103 QRS -18 QT 431 T 48 QTc 420 Conclusion Sinus rhythm...normal P axis, V-rate 50- 99 Borderline left axis deviation...QRS axis (-15,-29) Normal Electrocardiogram
== END 2022-08-28 09:55 | disposition home or self-care (01) ==
LOC: DI.KIM 09:56
PROVIDERS: PCP Nurse Practitioner Family; Visit Provider Nurse Practitioner Family
DX: R68.89 Other general symptoms and signs (principal)
CPT/HCPCS: 93010

== ENCOUNTER 2022-09-01 02:02 | Outpatient (CLI) | payer BC, SELFPAY ==
--- NOTE | 2022-09-01 06:00 | ETT_ITS ---
APPROVED REPORT Exam: Exercise Treadmill Patient Location: Out-Patient Room/Bed: Stress Nurse: Stacy Adler RN Ordering Provider:SAMANTHA ALVARENGA, Contact Number: [phone] BMI: 26.60 Baseline Rhythm: Sinus Bradycardia Indications: Abnormal EKG, R/O ischemia or infarct, decreased exercise tolerance Medical History Medical History: HLD, [place], Chronic anticoagulation, RAJANI Cardiac Medications: Apixiban, Wellbutrin Allergies: Sulfa Cardiac Risk Factors: Family Hx, HLD Previous Cardiac Procedures: None Pretest Chest Pain Characteristics: None Exercise History: Physically active Physical Disabilities: None Lung Sounds: Clear to auscultation Heart Sounds: Regular Stress Test Details Test: Exercise stress testing was performed using a Fito protocol. Rest Stress HR Resting HR Supine: 54 bpm Max Heart Rate (APMHR): 158 bpm Resting HR Standin bpm Target HR (85% APMHR): 134 bpm Max HR Achieved: 150 bpm % of APMHR: 95 Recovery HR: 69 bpm HR response to stress: Normal HR response to stress BP Resting BP Supine: 130/88 mmHg Resting BP Standin/90 mmHg Max BP: 190/90 mmHg Recovery BP: 148/48 mmHg BP response to stress: Normal blood pressure response to stress. ECG Resting ECG: Sinus Bradycardia Ectopy: None Stress ECG: Sinus Bradycardia, Sinus Tachycardia, Sinus Rhythm ST Change: No significant ST segment changes noted Arrhythmia: VPC's Comment: multifocal PVCs Recovery ECG: Sinus Rhythm Recovery ST Change: No significant ST segment changes noted Recovery Arrhythmia: VPC Comment: Multifocal PVc's, trigemeny Clinical Reason for Termination: Target HR Achieved Stress Symptoms: None Exercise duration: 12 min09 sec Highest Stage Reached: Stage 5: 5.0 mph at 18% grade. Exercise capacity: 13.57 METs Functional Capacity: Above average capacity Crowley Treadmill Score: 10.9 Rate Pressure Product: 79021 Stress ECG Conclusion 1. The resting electrocardiogram showed poor R wave progression 2. The patient exercised on the Fito protocol and completed a workload of 13.57 METS 3. Normal heart rate and blood pressure response to exercise. The patient achieved 95% of predicted heart rate for age 4. There was no electrocardiographic evidence of myocardial ischemia 5. PVCs were noted Crowley Treadmill Score is 10.9 which is Low risk. Stress Test Summary STAGE Time (mins) Speed (mph) Grade (%) HR BP SpO2 SYMPTOMS METS Supine 54 130/88 98 Standing 61 148/90 1 3 1.7 10 94 4.5 2 6 2.5 12 117 95 7 3 9 3.4 14 129 10 4 12 4.2 16 146 13 1 min recovery 101 190/90 98 3 min recovery 75 164/82 6 min recovery 69 178/78 98
== END 2022-09-01 02:22 ==
LOC: DI 02:04
PROVIDERS: PCP Nurse Practitioner Family; Visit Provider Nurse Practitioner Family
DX: R68.89 Other general symptoms and signs (principal); R94.31 Abnormal electrocardiogram [ECG] [EKG]
CPT/HCPCS: 93017

== ENCOUNTER 2022-11-14 11:40 | Emergency (ER) | payer BC, SELFPAY ==
[2022-11-14] VITALS (22 sets, daily range): BP systolic 165–182; BP diastolic 81–99; PULSE 55–67; RESP 10–25; TEMP 36.9; O2SAT 97–99
--- NOTE | 2022-11-14 11:30 | RT.EKG_ITS ---
APPROVED REPORT Exam: Resting ECG Reason for Exam: Chest pain Patient Location: E HR:58 bpm ECG Measurements Heart Rate 58 AXIS [place] 186 P 59 QRSd 97 QRS 16 QT 427 T 61 QTc 421 Conclusion Sinus bradycardia...rate< [address] segment or T wave abnormalities to suggest occlusive DC
[2022-11-14 12:10] LABS: Abs Immature Grans 0.02 10^3/uL (0.0-0.06); Absolute Basophil Count 0.05 10^3/uL (0.0-0.2); Absolute Eosinophil Count 0.13 10^3/uL (0.0-0.7); Absolute Lymphocyte Count 2.49 10^3/uL (1.2-3.4); Absolute Monocyte Count 0.38 10^3/uL (0.1-0.8); Basophils % 0.9; Eosinophils % 2.2; HCT 42.5 % (40.0-50.0); HGB 15.1 g/dL (13.5-17.5); Immature Grans % 0.3; Lymphocytes % 42.4; MCH 30.5 pg (27.0-33.0); MCHC 35.5 % (32.0-36.0); MCV 86 fL (80-95); MPV 10.4 fL (8.0-11.0); Monocytes % 6.5; Neutrophils % 47.7; Platelet Count 222 10^3/uL (130-400); RBC 4.95 10^6/uL (4.36-5.78); RDW 11.9 % (11.8-14.1); RDW-SD 37.3 fL; WBC 5.87 10^3/uL (4.4-10.8)
[2022-11-14 12:34] LABS: ALT 28 U/L (16-63); AST 19 U/L (15-37); Albumin 3.8 g/dL (3.4-5.0); Alkaline Phosphatase 82 U/L (46-116); Anion Gap 9.6 mmol/L (3-11); BUN 18 mg/dL (7-18); Bilirubin, Total 0.3 mg/dL (0.2-1.0); CO2 24.4 mmol/L (21.0-32.0); CREATININE 1.1 mg/dL (0.70-1.30); Calcium 9.6 mg/dL (8.5-10.1); Chloride 102 mmol/L (98-107); Glucose 121 mg/dL (74-106); Potassium 3.9 mmol/L (3.5-5.1); Sodium 136 mmol/L (136-145); Total Protein 7.9 g/dL (6.4-8.2); Troponin I < 50 ng/L (<or=60)
[2022-11-14] MEDS: Omnipaque 350 MG/ML 100 ML BTL IJ (13:29)
[2022-11-14] MEDS: Normal Saline - Diluent 50 ML VIAL IJ (13:30)
--- NOTE | 2022-11-14 13:35 | DI.CT_ITS ---
Exam(s) CT CHEST PE CTA EXAM: CT CHEST PE CTA CLINICAL HISTORY: chest pain. TECHNIQUE: Imaging Protocol: Axial CT angiography was performed with multi-slice acquisition and mu lti-planar reconstructions as well as axial, coronal and sagittal MIP reconstructions. CONTRAST MATERIAL: Intravenous: Omnipaque 350 Contrast volume:100 ml COMPARISON: CT CT CHEST PE CTA from 05/27/2019 FINDINGS: Pulmonary Arteries: No evidence of filling defect to suggest pulmonary emboli. Tracheobronchial tree: Patent where visualized. Mediastinum and Elizabeth: No dominant adenopathy or fluid collection. Pulmonary parenchyma: No consolidation or dominant measurable mass. Mild dependent changes. Pleura: No effusion or pneumothorax. Heart: The heart is mildly dilated. No coronary artery calcifications are seen. Aorta: Thoracic aorta non-dilated. No aneurysm. No dissection. Upper abdomen: Unremarkable. Bones: Degenerative changes in the mid to lower thoracic spine. Tubes, Catheters, and Lines: None IMPRESSION: No evidence of pulmonary embolism. RADIATION DOSE DELIVERED: 315.72mGy.cm Total DLP DATA REPOSITORY: All CT scans at this facility are submitted to the National Radiology Data Registry (NRDR) Dose Index Registry (DIR) with the [employer] (A[employer]). RADIATION OPTIMIZATION: All CT scans at this facility use at least one of these dose optimization te chniques: automated exposure control; mA and/or kV adjustment per patient size (includes targeted exa ms where dose is matched to clinical indication); or iterative reconstruction.
--- NOTE | 2022-11-14 14:35 | W.ED.GENAD ---
Discharge Plan Disposition Patient Disposition: Home Discharge Details Clinical Impression: Exertional chest pain, Blood pressure elevated without history of HTN Primary Care Provider: Little Chanel ED Provider: Sean Jurado Home Meds and New Rx's Prescriptions: Continued bupropion HCl [Wellbutrin XL] 150 mg tablet extended release 24 hr 150 mg PO QAM Qty: 90 1RF apixaban 5 mg tablet 5 mg PO BID Qty: 180 3RF Discontinued diclofenac sodium 1 % gel 2 g topical ONCE PRN (Reason: bursitis) Patient Comments: does not use Discharge Instructions Instructions: Chest Pain (ED) Additional Instructions: At this time using shared decision making your plan is to monitor your symptoms at home and return immediately if you have return of chest pain especially at rest. Otherwise avoid any exertional activities until further outpatient testing can be arranged and you are cleared for further activity by your primary care provider or care team coordinator scheduler. Also it was noted that you had elevated blood pressure. Please continue to monitor this and record your numbers. If you are asymptomatic it is okay to follow-up with your primary care provider but again if you have any new or significant worsening of symptoms return immediately to the emergency department for reassessment. Referrals: Little Chanel, ANÍBAL [Primary Care Provider] - 3 days Discharge Data Discharge Date/Time-TO BE ENTERED AT DEPARTURE: 11/14/22 15:40 Medical Decision Making Patient presenting to the emergency department for chief complaint of chest pain. Patient called primary care provider's office who he discussed his chest pain with and they recommended that he come to the emergency department for evaluation. Patient reports just over the past 10 days anytime he exercises vigorously he starts having some chest pain that radiates into his neck back and bilateral arms. He states after a period of rest the chest pain resolves and he has no further symptoms throughout the rest the day. Patient denies all other symptoms. He does have a history of PE, obstructive sleep apnea, hyperlipidemia and back pain. Patient is pain-free at this time, vital signs show some hypertension but otherwise completely stable vital signs and noncontributory physical exam with no findings noted. Given patient's history we will plan on checking labs CT imaging of the chest and EKG. Given the patient is pain-free do not feel that any interventions are needed at this time. Please see physician interpretation for full interpretation of EKG but upon my review patient is in sinus rhythm with no acute ischemic/STEMI findings. Reviewed patient's labs and CBC is unremarkable with no anemia leukocytosis or other abnormality noted, CMP only shows an abnormality of slightly elevated glucose at 121 otherwise normal CMP, troponin is nondetected and all other labs are within normal range. CTA was performed and shows no acute findings. Repeat troponin was again nondetectable. Patient does have a mild to moderate score for his heart score. Shared decision-making was utilized to further discuss inpatient admission with monitoring versus outpatient follow-up. After full discussion of risk versus benefit we decided to have patient follow-up with primary care provider early next week preferably on Thursday for arrangement of further cardiac testing which may include stress test or echo test given his exertional chest pain. Again patient was asymptomatic the entire time in the department. Also of note is that patient did have elevated blood pressure readings. Patient has no history of hypertension and states he has never needed medication for this or even had high readings. Due to this I did discuss starting patient on blood pressure medication because of him being here for cardiac complaint. Again after discussion of risk versus benefit patient decided to monitor blood pressure at home given his significant other is a former nurse practitioner and will follow up about his blood pressure elevation again with his follow-up with primary care provider. I did offer to prescribe him low-dose initial hypertension medication which she stated that he did not want at this time. After discussion of diagnosis and plan of care patient has no further needs, questions, or concerns and states clear understanding to return to the emergency department for any worsening symptoms. This documentation was generated using [employer] dictation system, please disregard any oddities of phrase or misspellings. Imaging Data Radiologic Study: Imaging: CT Scan Radiologist's impression: Exam(s) CT CHEST PE CTA EXAM: CT CHEST PE CTA CLINICAL HISTORY: chest pain. TECHNIQUE: Imaging Protocol: Axial CT angiography was performed with multi-slice acquisition and multi-planar reconstructions as well as axial, coronal and sagittal MIP reconstructions. CONTRAST MATERIAL: Intravenous: Omnipaque 350 Contrast volume:100 ml COMPARISON: CT CT CHEST PE CTA from 05/27/2019 FINDINGS: Pulmonary Arteries: No evidence of filling defect to suggest pulmonary emboli. Tracheobronchial tree: Patent where visualized. Mediastinum and Elizabeth: No dominant adenopathy or fluid collection. Pulmonary parenchyma: No consolidation or dominant measurable mass. Mild dependent changes. Pleura: No effusion or pneumothorax. Heart: The heart is mildly dilated. No coronary artery calcifications are seen. Aorta: Thoracic aorta non-dilated. No aneurysm. No dissection. Upper abdomen: Unremarkable. Bones: Degenerative changes in the mid to lower thoracic spine. Tubes, Catheters, and Lines: None IMPRESSION: No evidence of pulmonary embolism. Lab Data Lab results reviewed: Yes I reviewed the patient's lab results. HPI General Mode of arrival: ambulatory. Date/Time Provider Initiated Documentation: 11/14/22 11:50. Limitations to Documentation: no limitations. Information obtained by: patient and RN notes reviewed. History of Present Illness 62 year old M presents to the emergency department with the chief complaint of chest pain , described as mild and moderate, Quality is described as aching, and is localized to the chest. Patient reports radiation to back, neck and extremity. Patient started experiencing this day(s) (10) and it has been intermittent and now resolved. Rest improves symptom(s), Other factors that worsen symptoms (Vigorous activity) . Patient notes no other symptoms.. Patient did receive the following treatments prior to arrival, none Related Data Home Medications Medication Instructions Recorded Confirmed bupropion HCl 150 mg 24 hr tablet, 150 mg PO QAM #90 tab-caps 04/17/22 11/14/22 extended release (Wellbutrin XL) apixaban 5 mg tablet 5 mg PO BID #180 tabs 08/19/22 11/14/22 Previous Rx's Medication Instructions Recorded bupropion HCl 150 mg 24 hr tablet, 150 mg PO QAM #90 tab-caps 04/17/22 extended release (Wellbutrin XL) apixaban 5 mg tablet 5 mg PO BID #180 tabs 08/19/22 Allergies Allergy/AdvReac Type Severity Reaction Status Date / Time Sulfa (Sulfonamide Allergy Unknown unknown Verified 11/14/22 11:48 Antibiotics) General Stated Complaint: Chest Pain MOSHE: 3 Review of Systems Constitutional Constitutional: Denies chills, Denies fever(s) and Denies malaise Cardiovascular Cardiovascular: Reports as per HPI, Denies chest pain at rest, Reports chest pain with activity, Denies syncope, Denies irregular heart rhythm, Denies leg edema, Denies palpitations and Denies dyspnea Respiratory Respiratory: Denies cough, Denies hemoptysis and Denies dyspnea Gastrointestinal Gastrointestinal: Denies abdominal pain, Denies nausea and Denies vomiting Neurologic Neurologic: Denies syncope Psychiatric Psychiatric: Denies anxiety Endocrine Endocrine: Denies cold intolerance, Denies heat intolerance and Denies palpitations PFSH All Active Problems (Updated 11/14/22 @ 15:14 by Sean Jurado NP) Exertional chest pain (Acute) Blood pressure elevated without history of HTN (Acute) Hammertoe of second toe of left foot (Acute) Hallux valgus with bunions of right foot (Acute) Lumbar stenosis with neurogenic claudication (Acute) Hyperlipidemia, unspecified (Chronic) 11/2021 labs: 10-year ASCVD risk = ~9.0% History of pulmonary embolus (PE) (Chronic) x2 (2014, 2019); chronic anticoagulation Lumbar nerve root compression (Acute) Lumbar disc herniation with radiculopathy (Acute) Alcohol abuse (Chronic) Chronic anticoagulation (Chronic 05/2019) Piriformis syndrome (Acute) Depressive disorder, not elsewhere classified (Chronic 05/27/12) Lumbar radiculopathy (Acute 08/24/17) [facility] secondary to stiff hip and early osteoarthritis Obstructive sleep apnea (Acute 05/31/15) Mild. O2 sat jose 90% on RA, using oral appliance Periodic limb movements of sleep (Acute 05/31/15) [facility] Entrapment of left ulnar nerve (Acute 04/01/18) [facility] Medical History Avulsion fracture of ankle (~02/2020) Left, [facility] Elevated blood pressure reading Pulmonary embolism with acute cor pulmonale (~05/2019) 05/27/19 Large (B) PE's w/ (R) heart strain Pulmonary embolus with infarction (02/28/15) Tubular adenoma of colon (07/27/13) Surgical History debridement, rgt ankle (08/30/14) Dr. Dillon H/O left knee surgery (2006) Reconstruction open removal loose body, rgt ankle (08/30/14) Status post lumbar spine surgery for decompression of spinal cord (12/05/21) L4-L5 Family History Mother , stroke at age 54. Stroke Father No problems noted. 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 What type of physical activity do you participate in: regular exercise Frequency: 5-6 times per week Seatbelt use: always Drive intox or ride w/intox medical delivery driver: No Working smoke detector in home: Yes Fire extinguisher in home: Yes Carbon monox detector in home: Yes Do you feel safe at home: Yes Do you feel safe in your relationship?: Yes Exam Const General: cooperative, healthy appearing, comfortable, no acute distress, not diaphoretic and not ill appearing Nutritional Appearance: average body habitus Orientation: alert, awake and oriented x3 Limitations: mental status not altered Neck Neck: normal visual inspection, full ROM, trachea midline, supple and no anterior neck swelling Thyroid: thyroid normal Carotids: normal carotid upstroke and no bruits Chest Chest: normal inspection of the chest Resp Effort & Inspection: normal respiratory effort and able to speak in complete sentences Auscultation: clear to auscultation bilaterally Cardio Jugular venous pressure: no JVD Palpation: normal PMI Rate: regular rate Rhythm: regular rhythm Heart Sounds: S1 normal, S2 normal, no click, no gallops, no murmurs and no rubs Bruits: no abdominal aortic bruits and no carotid bruits Pulses: radial pulses present bilaterally 2+ Skin General skin exam: no rashes or lesions noted Neuro General: patient alert, patient awake, patient oriented x3, tone normal and moves all extremities Course Vital Signs Vital signs: Vital Signs Temperature 36.9 C 11/14/22 11:42 Pulse 64 11/14/22 11:42 Respiratory Rate 20 11/14/22 11:42 Blood Pressure 178/99 H 11/14/22 11:42 Pulse Oximetry 99 11/14/22 11:42 Temperature 36.9 C 11/14/22 11:42 Temperature Source Skin 11/14/22 11:42 Pulse 60 11/14/22 14:15 Pulse 65 11/14/22 14:20 Respiratory Rate 23 11/14/22 14:20 Respiratory Effort Normal, Non-Labored 11/14/22 11:49 Blood Pressure 176/81 H 11/14/22 14:15 Blood Pressure Mean 113 11/14/22 14:15 Blood Pressure Position Supine 11/14/22 11:42 Pulse Oximetry 97 11/14/22 12:30 Oxygen Delivery Method Room Air 11/14/22 11:42 Oxygen Flow Rate 0 11/14/22 11:42 Pain Level 0 11/14/22 11:42 Lab/Test Results Lab/Test Results: Laboratory Tests Range/Units 11/14/22 11/14/22 11:50 11:50 WBC (4.4-10.8) 10^3/uL 5.87 RBC (4.36-5.78) 10^6/uL 4.95 Hgb (13.5-17.5) g/dL 15.1 Hct (40.0-50.0) % 42.5 MCV (80-95) fL 86 MCH (27.0-33.0) pg 30.5 MCHC (32.0-36.0) % 35.5 RDW (11.8-14.1) % 11.9 Plt Count (130-400) 10^3/uL 222 MPV (8.0-11.0) fL 10.4 Immature Gran % 0.3 Neutrophils % 47.7 Lymphocytes % 42.4 Monocytes % 6.5 Eosinophils % 2.2 Basophils % 0.9 Nucleated RBC % (0.0-0.3) % 0.0 Absolute Neutrophils (1.2-6.7) 10^3/uL 2.80 Absolute Lymphocytes (1.2-3.4) 10^3/uL 2.49 Absolute Monocytes (0.1-0.8) 10^3/uL 0.38 Absolute Eosinophils (0.0-0.7) 10^3/uL 0.13 Absolute Basophils (0.0-0.2) 10^3/uL 0.05 Sodium (136-145) mmol/L 136 Potassium (3.5-5.1) mmol/L 3.9 Chloride (98-107) mmol/L 102 Carbon Dioxide (21.0-32.0) mmol/L 24.4 Anion Gap (3-11) mmol/L 9.6 BUN (7-18) mg/dL 18 Creatinine (0.70-1.30) mg/dL 1.1 Est GFR (CKD-EPI 2020) (mL/min/1.73m2) 75.90 Glucose (74-106) mg/dL 121 H Calcium (8.5-10.1) mg/dL 9.6 Magnesium (1.8-2.4) mg/dL 2.0 Total Bilirubin (0.2-1.0) mg/dL 0.3 AST (15-37) U/L 19 ALT (16-63) U/L 28 Alkaline Phosphatase (46-116) U/L 82 Troponin I (<or=60) ng/L < 50 Total Protein (6.4-8.2) g/dL 7.9 Albumin (3.4-5.0) g/dL 3.8 PAWSS Have you Been Recently Intoxicated or Drunk Within the Last 30 days?: Yes Have you Ever Experienced Previous Episodes of Alcohol Withdrawal?: No Have you ever Experienced Withdrawal Seizures?: No Have you ever Experienced Delirium Tremens(DT)s?: No Have you ever undergone Alcohol Rehabilitation Treatment (i.e, inpt ot outpatient treatment programs)?: No Have you ever Experienced Blackouts?: No Have you ever Combined Alcohol with other Downers within the last 90 days?: No Have you ever Combined Alcohol with any other Substance of Abuse during the last 90 days?: No Positive Blood Alcohol level on Presentation? [PCS.BAL]: No Evidence of Increased Autonomic Activity (i.e. HR>120, tremor, sweating, agitation, nausea)?: No Result: 1
[2022-11-14 14:58] LABS: Troponin I < 50 ng/L (<or=60)
[2022-11-19 14:02] LABS: Lab Add On Test DONE
[2022-11-19 14:24] LABS: TSH 2.63 uIU/mL (0.36-3.74)
== END 2022-11-14 15:40 | disposition home or self-care (01) ==
PROVIDERS: Student in an Organized Health Care Education/Training Program; Emergency Provider Nurse Practitioner Family; PCP Nurse Practitioner Family
DX: R07.9 Chest pain, unspecified (principal); R03.0 Elevated blood-pressure reading, without diagnosis of hypertension; R00.1 Bradycardia, unspecified; E78.5 Hyperlipidemia, unspecified; Z86.711 Personal history of pulmonary embolism; Z79.01 Long term (current) use of anticoagulants
CPT/HCPCS: 36415; 71275; 80053; 93005; 99285; 83735; 84443; 84484; 85025; 93010; 99284; J3490

== ENCOUNTER → 2022-11-25 00:44 | Outpatient (CLI) | payer BC, SELFPAY ==
--- NOTE | 2022-11-25 07:30 | DI.NM_ITS ---
APPROVED REPORT Exam: Exercise Treadmill Patient Location: Out-Patient Room/Bed: Stress Nurse: Karla Pruitt RN Ordering Provider:SHAY WALTER, Contact Number: [phone] BMI: 27.06 Baseline Rhythm: Sinus Bradycardia Indications: Chest pain with exertion - patient reports he gets significant chest pain when cycling a nd hiking. Reports that it can have a rapid onset and that he will continue with his activity, even i f it makes him want to stop, until it goes away. Medical History Medical History: HLD, ETOH abuse, RAJANI, PE w/ acute pulmonale, PE w/ infarction Cardiac Medications: Apixiban, Buproprion HCL ER Allergies: Sulfa Cardiac Risk Factors: +family history, occasionally smokes a pipe, HLD Previous Cardiac Procedures: None Pretest Chest Pain Characteristics: None Exercise History: Physically active Physical Disabilities: None Lung Sounds: LCTA Heart Sounds: S1/S2, regular Stress Test Details Test: Exercise stress testing was performed using a Fito protocol. Nuclear Acquisition: Rest Tc-99m/Stress Tc-99m 1 day Rest Isotope: Tc-99m Sestamibi. Dose: 9.5 Date: 11/25/2022 Injection Time: 08:50 Stress Isotope: Tc-99m Sestamibi. Dose: 31 Date: 11/25/2022 Injection Time: 10:18 HR Resting HR Supine: 54 bpm Max Heart Rate (APMHR): 158.190540 bpm Resting HR Standin bpm Target HR (85% APMHR): 134.120351 bpm Max HR Achieved: 145 bpm % of APMHR: 91.77 Recovery HR: 73 bpm HR response to stress: Normal HR response to stress BP Resting BP Supine: 140/88 mmHg Resting BP Standin/90 mmHg Max BP: 184/84 mmHg Recovery BP: 140/80 mmHg BP response to stress: Normal blood pressure response to stress. ECG Resting ECG: Sinus Bradycardia Ectopy: None Stress ECG: Sinus Tachycardia ST Change: ST depression - diffuse Lead(s): Inferior, Lateral, Anterior, Septal Stage: [address] Deviation: 2-3 mm Arrhythmia: PVC's, couplets Recovery ECG: Sinus Rhythm Recovery ST Change: ST depression Lead(s): Inferior, Lateral, Anterior, Septal Recovery ST Deviation: 3-4 mm Recovery Arrhythmia: Multifocal PVC's, rare PAC Clinical Reason for Termination: ST changes Stress Symptoms: Vague - chest pressure, mild discomfort, palpitations Exercise duration: 10 min11 sec Highest Stage Reached: Stage 3: 3.4 mph at 14% grade. Exercise capacity: 12.11 METs Angina Score: Non-Limiting Crowley Treadmill Score: -1.0 Rate Pressure Product: 37837 Stress ECG Conclusion 1. Electrocardiogram showed late transition 2. Patient exercised on the Fito protocol and completed a workload of 12.11 METS 3. Normal heart rate and blood pressure response to exercise. The patient achieved 92% of predicted heart rate for age 4. At peak exercise there was J-point depression and upsloping ST segments. In recovery the ST segme nts became horizontal and 1 to 2 mm depression in 2 3 aVF and V6 consistent with myocardial ischemia 5. PVCs were noted 6. See MPI report Crowley Treadmill Score is -1.0 which is Moderate risk. Stress Test Summary STAGE Time (mins) Speed (mph) Grade (%) HR BP SpO2 SYMPTOMS METS Supine 54 140/88 Standing 63 136/90 1 3 1.7 10 87 148/84 4.5 2 6 2.5 12 109 160/80 7 3 9 3.4 14 130 twinge of chest discomfort 10 4 12 4.2 16 143 Mild discomfort 13 1 min recovery 118 130/82 3 min recovery 79 184/84 6 min recovery 75 162/88 9 min recovery 78 140/80 12 min recovery 73 Patient reports that he did not get the same type of chest pain during his stress test that he gets w hen he is out cycling or hiking. Stated during test that he got a twinge of discomfort around 125 bpm and mild discomfort/pressure at 135 bpm. Patient stated his chest pressure was a 2/10 maximum during test. Patient was asymptomatic at time of completion of the stress portion of the test. MPI Conclusion Myocardial perfusion is equivocal for ischemia of the apex and septum. There is no infarction Ejection fraction is 61%. Wall motion is normal Radiologist Interpretation Radiologist agrees with Hostel Manager's Interpretation. Radiologist Interpretation by: Dimitrios Han MD Interpretation Date/Time: 11/25/2022 18:12:56
== END ==
PROVIDERS: PCP Nurse Practitioner Family; Visit Provider Family Medicine
DX: R07.9 Chest pain, unspecified (principal)
CPT/HCPCS: 78452; 93017

== ENCOUNTER 2022-12-25 08:09 | Outpatient (CLI) | payer BC, SELFPAY ==
--- NOTE | 2022-12-25 08:00 | RT.EKG_ITS ---
APPROVED REPORT Exam: Resting ECG Reason for Exam: CAD Patient Location: O HR:47 bpm ECG Measurements Heart Rate 47 AXIS NJ 206 P 23 QRSd 97 QRS -27 QT 470 T 43 QTc 416 Conclusion Sinus bradycardia...rate< 50 Borderline left axis deviation...QRS axis (-15,-29) Otherwise normal ECG
== END 2022-12-25 08:10 | disposition home or self-care (01) ==
LOC: DI.CARD 08:10
PROVIDERS: PCP Nurse Practitioner Family; Visit Provider Internal Medicine Cardiovascular Disease
DX: I25.10 Atherosclerotic heart disease of native coronary artery without angina pectoris (principal)
CPT/HCPCS: 93010

== ENCOUNTER 2023-01-06 12:18 | Outpatient (RCR) | payer BC, SELFPAY | END 2023-01-08 23:59 | disposition home or self-care (01) | LOC: CR 12:18 | PROVIDERS: PCP Nurse Practitioner Family; Visit Provider Internal Medicine Cardiovascular Disease | DX: I25.2 Old myocardial infarction (principal) ==

== ENCOUNTER 2023-02-06 08:12 | Outpatient (RCR) | payer BC, SELFPAY | END 2023-02-08 23:59 | disposition home or self-care (01) | LOC: CR 08:12 | PROVIDERS: PCP Nurse Practitioner Family; Visit Provider Internal Medicine Cardiovascular Disease | DX: Z51.89 Encounter for other specified aftercare; Z95.5 Presence of coronary angioplasty implant and graft; I25.2 Old myocardial infarction | CPT/HCPCS: S9472 ==

== ENCOUNTER 2023-02-16 08:16 | Outpatient (RCR) | payer BC, SELFPAY | END 2023-03-11 23:59 | disposition home or self-care (01) | LOC: CR 08:16 | PROVIDERS: PCP Nurse Practitioner Family; Visit Provider Internal Medicine Cardiovascular Disease | DX: Z95.2 Presence of prosthetic heart valve (principal); Z95.5 Presence of coronary angioplasty implant and graft; Z51.89 Encounter for other specified aftercare | CPT/HCPCS: S9472 ==

== ENCOUNTER 2023-04-24 14:41 | Outpatient (REF) | payer BC, SELFPAY | END 2023-04-24 14:42 | disposition home or self-care (01) | LOC: NCHCN 14:41 | PROVIDERS: PCP Nurse Practitioner; Visit Provider Physician Assistant Medical | DX: J02.9 Acute pharyngitis, unspecified (principal) | CPT/HCPCS: 87070 ==

== ENCOUNTER 2023-04-30 05:35 | Outpatient (CLI) | payer BC, SELFPAY ==
[2023-04-30 08:19] LABS: Calculated LDL 82 mg/dL (<100); Cholesterol 203 mg/dL (<200); HDL Cholesterol 54 mg/dL (40-60); Triglyceride 336 mg/dL (<150)
[2023-04-30 17:47] LABS: PSA, Screening 0.6 ng/mL (<=4.5)
== END 2023-04-30 05:36 | disposition home or self-care (01) ==
LOC: LBO 05:35
PROVIDERS: Absent Provider Nurse Practitioner; PCP Nurse Practitioner; Visit Provider Nurse Practitioner
DX: E78.5 Hyperlipidemia, unspecified (principal); Z12.5 Encounter for screening for malignant neoplasm of prostate
CPT/HCPCS: 36415; 80061; 84153

== ENCOUNTER → 2023-05-28 01:19 | Outpatient (CLI) | payer BC, SELFPAY ==
--- NOTE | 2023-05-28 08:15 | DI.NM_ITS ---
APPROVED REPORT Exam: Exercise Treadmill Patient Location: Out-Patient Room/Bed: Stress Nurse: Renetta Moreno RN Ordering Provider:CONCHA COTTER, Contact Number: BMI: 27.40 Baseline Rhythm: Sinus Rhythm Comment: Occasional PVC's Indications: Chest pain, CAD, HLD, complex stenting, Medical History Medical History: CAD, atypical chest pain Cardiac Medications: Atorvastatin, apixaban, clopidogrel, buproprion Allergies: Sulfa Cardiac Risk Factors: HLD, family hx Previous Cardiac Procedures: Cardiac stents Pretest Chest Pain Characteristics: None Exercise History: Physically active Physical Disabilities: None Lung Sounds: Clear to auscultation Heart Sounds: Regular Stress Test Details Test: Exercise stress testing was performed using a Fito protocol. Nuclear Acquisition: Rest Tc-99m/Stress Tc-99m 1 day Rest Isotope: Tc-99m Sestamibi. Dose: 10.0 Date: 05/28/2023 Injection Time: 1200 Stress Isotope: Tc-99m Sestamibi. Dose: 31.0 Date: 05/28/2023 Injection Time: 1415 HR Resting HR Supine: 59 bpm Max Heart Rate (APMHR): 157.877455 bpm Resting HR Standin bpm Target HR (85% APMHR): 133.054925 bpm Max HR Achieved: 145 bpm % of APMHR: 92.36 Recovery HR: 73 bpm HR response to stress: Normal HR response to stress BP Resting BP Supine: 128/72 mmHg Resting BP Standin/82 mmHg Max BP: 188/76 mmHg Recovery BP: 142/72 mmHg BP response to stress: Normal blood pressure response to stress. ECG Resting ECG: Sinus Bradycardia Ectopy: Occasional PVC's Stress ECG: Sinus Tachycardia ST Change: No significant ST segment changes noted Arrhythmia: Occasional PVC's, couplets Recovery ECG: Sinus Rhythm Recovery ST Change: No significant ST segment changes noted Recovery Arrhythmia: Occasional PVC's, bigeminy, couplets Clinical Reason for Termination: Target HR Achieved Stress Symptoms: None Exercise duration: 07 min44 sec Highest Stage Reached: Stage 3: 3.4 mph at 14% grade. Exercise capacity: 9.74 METs Angina Score: None Rate Pressure Product: [id number] Stress ECG Conclusion 1. Resting EKG showed late transition 2. Patient exercised on the Fito protocol and completed a workload of 9.74 METS 3. Normal heart rate and blood pressure reponse ot exercise. Patient achieved 92% of predicted heart rate for age 4. There was no electrocardiographic evidence of myocardial ischemia 5. PVCs were seen 6. See MPI report Stress Test Summary STAGE Time (mins) Speed (mph) Grade (%) HR BP SpO2 SYMPTOMS METS Supine 59 128/72 Standing 74 128/82 1 3 1.7 10 99 4.5 2 6 2.5 12 121 7 3 9 3.4 14 145 10 1 min recovery 114 178/82 3 min recovery 82 188/76 6 min recovery 74 146/58 9 min recovery 73 142/72 MPI Conclusion Normal myocardial perfusion. Ther eis no ischemia or evidence of prior infarction EF is 55%. Wall motion is normal Radiologist Interpretation Radiologist agrees with Investigative Writer's Interpretation. Radiologist Interpretation by: Kelly Khanna MD Interpretation Date/Time: 05/29/2023 15:22:55
== END ==
PROVIDERS: PCP Nurse Practitioner; Visit Provider Internal Medicine Cardiovascular Disease
DX: I25.10 Atherosclerotic heart disease of native coronary artery without angina pectoris (principal); R07.9 Chest pain, unspecified; E78.49 Other hyperlipidemia
CPT/HCPCS: 78452; 93017

== ENCOUNTER 2023-08-24 06:24 | Day surgery (SDC) | payer BC, SELFPAY ==
--- NOTE | 2023-08-23 16:39 | W.PM.DSUDISC ---
Date of service: 08/24/23 Time of Service: 08:06 Discharge Plan Disposition Patient Disposition: Home Condition: Good Discharge Details Reason For Visit: Screening colonoscopy Attending Provider: Olivier Gee Primary Care Provider: Eduarda Alfredo Home Meds and New Rx's Prescriptions: Continued bupropion HCl [Wellbutrin XL] 150 mg tablet extended release 24 hr 150 mg PO QAM Qty: 90 3RF atorvastatin 40 mg tablet 40 mg PO DAILY Qty: 90 3RF clopidogrel 75 mg tablet 75 mg PO DAILY Qty: 90 3RF Held apixaban 5 mg tablet 5 mg PO BID Qty: 180 3RF Hold Instructions: Resume on 08/25/23. Discontinued bisacodyl [Dulcolax (bisacodyl)] 5 mg tablet,delayed release (DR/EC) 5 mg PO ONCE Qty: 4 0RF Rx Instructions: Take per colonoscopy instructions provided by ordering providers office polyethylene glycol 3350 17 gram/dose powder 17 g PO ONCE Qty: 238 0RF Rx Instructions: Take per colonoscopy instructions provided by ordering providers office Discharge Instructions Instructions: Colon polyps Additional Instructions: Time, we were able to complete your colonoscopy today without any difficulty. Your prep was excellent and I could see everything fine. I did find and removed 2 polyps today. 1 was small, the other was medium in size. To the naked eye, the features are not particularly worrisome. However, to be safe, these will be sent off for testing. Once I know the nature of these polyps, that information will be used to guide the timing of your next colonoscopy. I would like you to hold your apixaban through today, and resume taking it as normal tomorrow. I attached a little bit of information here about colon polyps. If you have any questions at all, please do not hesitate to call. 1. If tolerated, consume a soft, low fiber diet for 1-2 days. 2. Do not drive, drink alcohol, operate machinery, make critical decisions, or do activities that require coordination or balance for 24 hours. 3. Because air was put into your colon during the procedure, expelling air from your rectum (passing gas or farting) is normal. 4. You may not have a bowel movement for 1-3 days because of the colonoscopy prep. This is normal. 5. Go directly to the emergency room if you notice any of the following: Develop chills (warm to touch), or if you have a thermometer and your temperature is above 101 Difficulty breathing or difficultly swallowing Persistent vomiting Severe abdominal pain, other than gas cramps Severe chest pain Black, tarry stools Any bleeding ? exceeding one tablespoon 6. Call your physician if the site where your intravenous was started becomes red, swollen, painful, and warm to touch. 7. Your physician has reviewed your pre-procedure medications. Please continue to take those medications as previously ordered. You will be given specific information/education regarding any changes to your medications before leaving. Activity:: Activity as Tolerated Diet:: As Tolerated Discharge Orders Discharge Orders: Discharge Order (Routine); Ordered 08/23/23 Ordered By: Olivier Gee DS: Diagnosis Discharge Diagnosis (1) Encounter for screening colonoscopy: Status: Acute Asessment and Plan: Follow-up on polypectomy results
--- NOTE | 2023-08-23 16:41 | COLE_ITS ---
Date of service: 08/24/23 Time of Service: 08:08 Colonoscopy Report Date of procedure: 08/24/23 Pre-op diagnosis general: Screening colonoscopy Procedure: Colonoscopy with polypectomy Surgeon: Olivier Gee Anesthesia Type: General:No Airway Estimated blood loss (mL): 5 Pathology: other (0.5 cm ascending colon polyp, 0.25 cm polyp at 60 cm) Complications: None Disposition: same day Indications: Jasbir is 63 years old, and he is due for his next screening colonoscopy. Prep: Miralax/Dulcolax Procedure Start Time: 07:33 Procedure End Time: 07:55 Retraction Time: 8 Findings: 0.5 cm ascending colon polyp, 0.25 cm polyp at 60 cm Procedure Description: After the induction of anesthesia, and with the patient in left lateral decubitus position, I began by performing an external anorectal exam.? Perineum and skin were normal, as was the anal verge.? There are some external hemorrhoids.? Next, I performed a digital rectal exam.? I did not appreciate any abnormal findings.? Next, I advanced a colonoscope into the rectal vault.? I performed retroflexion.? This appeared normal.? Using insufflation, I then advanced the colonoscope beyond the rectal folds and into the sigmoid colon before advancing towards the cecum.? The scope was noted to be in the cecum by identification of the ileocecal valve and appendiceal orifice.? I then began withdrawing the colonoscope using repeated irrigation as necessary for full evaluation of the colonic mucosa. In the ascending colon was a 0.5 cm slightly pedunculated polyp. This was removed with cold snare polypectomy. Specimen was completely retrieved. I found another polyp around 60 cm from the anus. This was more flat. This was removed with cold forceps. Once the scope was withdrawn to the level of the rectum, great care was taken to examine portions of the rectal folds.? Finally, the scope was withdrawn and the patient was brought to the same-day surgery recovery unit as the anesthetic wore off. ?The findings and instructions were shared with the patient prior to discharge. [place] Bowel Prep Washington Bowel Prep Right Colon: 3 Left Colon: 3 Transverse Colon: 3 Total Score: 9
--- NOTE | 2023-08-24 06:22 | ANES.PREOP_ITS ---
General Info Date of Service Date Performed: 08/24/23 Height: 5 ft 8 in Weight: 80.739 kg Body Mass Index (BMI): 27.0 Surgical Procedure: Operation Date: 08/24/23 07:35 Proposed Procedure Side Surgeon sanchez Gee MD Meds Allergies and Home Medications Allergies Allergy/AdvReac Type Severity Reaction Status Date / Time Sulfa (Sulfonamide Allergy Unknown unknown Verified 08/24/23 06:44 Antibiotics) Home Medication ?Medication ?Instructions ?Recorded atorvastatin 40 mg tablet 40 mg PO DAILY #90 tabs 03/02/23 clopidogrel 75 mg tablet 75 mg PO DAILY #90 tabs 03/02/23 apixaban 5 mg tablet 5 mg PO BID #180 tabs 04/08/23 bupropion HCl 150 mg 24 hr tablet, 150 mg PO QAM #90 tab-caps 04/08/23 extended release (Wellbutrin XL) Current Visit Medications: Current Medications Generic Name Dose Route Start Last Admin Trade Name Freq PRN Reason Stop Dose Admin Hyoscyamine Sulfate 0.125 mg 08/23/23 16:42 Hyoscyamine 0.125 Mg Sl/Oral/Chew SL 09/22/23 16:41 DIRECTED PRN Ondansetron HCl 4 mg 08/23/23 16:42 Ondansetron 4 Mg/2 Ml Vial IVP 09/22/23 16:41 Q4H PRN PRN Nausea / Vomiting PFSH Active Problems Active Problems: Problem Status Onset Code Encounter for screening colonoscopy Acute Z12.11 Corneal abrasion, left Acute S05.02XA CAD (coronary artery disease) Chronic I25.10 Unstable angina pectoris Acute I20.0 Abnormal nuclear cardiac imaging test Acute ~11/2022 R93.1 Hyperlipidemia, unspecified Chronic E78.5 History of pulmonary embolus (PE) Chronic Z86.711 Chronic anticoagulation Chronic 05/2019 Z79.01 Lumbar nerve root compression Acute M54.16 Lumbar disc herniation with radiculopathy Acute M51.16 Alcohol abuse Chronic F10.10 Piriformis syndrome Acute G57.00 Depressive disorder, not elsewhere classified Chronic 05/27/12 F32.9 Lumbar radiculopathy Acute 08/24/17 M54.16 Lumbar stenosis with neurogenic claudication Acute M48.062 Obstructive sleep apnea Acute 05/31/15 G47.33 Periodic limb movements of sleep Acute 05/31/15 G47.61 Entrapment of left ulnar nerve Acute 04/01/18 G56.22 Medical History Medical History Hammertoe of second toe of left foot Hallux valgus with bunions of right foot Elevated blood pressure reading Avulsion fracture of ankle (~02/2020) Left, [facility] Pulmonary embolism with acute cor pulmonale (~05/2019) 05/27/19 Large (B) PE's w/ (R) heart strain Tubular adenoma of colon (07/27/13) Pulmonary embolus with infarction (02/28/15) xferred to [facility] [place] (Trop, +) Surgical History Surgical History Hx of colonoscopy H/O left knee surgery (2006) Reconstruction Status post lumbar spine surgery for decompression of spinal cord (12/05/21) L4-L5 open removal loose body, rgt ankle (08/30/14) debridement, rgt ankle (08/30/14) Dr. Dillon Tobacco Smoking/Tobacco Use Status: Never Alcohol Alcohol Intake: current Alcohol intake frequency: 0-2 drinks per day Alcohol type: beer and wine Substance Use Substance use: Occasionally Substance use type: marijuana Vital Signs and Lab Results Vital Signs Most Recent Vital Signs in EMR: Temp Pulse Resp BP Pulse Ox 36.5 C 55 L 18 114/85 99 08/24/23 06:47 08/24/23 06:47 08/24/23 06:47 08/24/23 06:47 08/24/23 06:47 Lab Results Blood Type / Crossmatch: No Data to Display Complete Blood Count: No Data to Display Complete Metabolic Panel: No Data to Display Liver Function Panel: No Data to Display Coagulation Panel: No Data to Display Cardiac Panel: No Data to Display Arterial Blood Gas: No Data to Display Venous Blood Gas: No Data to Display Pancreas Panel: No Data to Display Thyroid Panel: No Data to Display Infectious Disease: No Data to Display Blood Cultures: No Data to Display Toxicology Panel: No Data to Display Imaging and Studies Imaging and Studies Study information below may be from another EMR and interpreted by another provider. Please see original notes in EMR for more complete details. EKG Summary: 01/01: sinus viry . Stress Test Summary: 06/02: 9.74 METs. no ECG of ischemia. LVEF 55%. no perfusion defects. Pulmonary Function Summary: 11/24: mild obstructive dz. Anesthesia Assessment and Plan Anesthesia History Personal History: No History of Anesthesia Complications Family History: No Family History of Anesthesia Complications Exercise Tolerance Exercise Tolerance: Metabolic Equivalents>4 Cardiac & Pulmonary Exam Cardiac Exam: Normal S1/S2 Heart Sounds Pulmonary Exam: Clear Bilateral Breath Sounds Implantable Cardiac Device Does patient have a Pacemaker or an ICD?: No Airway Exam Known Difficult Airway: No Mallampati Class: 2 Mouth Opening: Normal (> 3cm) Thyromental Distance: Greater than 3 cm Neck Range of Motion: Full ROM Neck Circumference: Normal Teeth Condition: Normal Dentition ASA Classification ASA Score: ASA 3 Emergency Case?: No NPO Status NPO Status: NPO Clears >2 hours, Solids >8 hours Anesthesia Plan Resuscitation Status: Full Code Anesthesia Technique: General Anesthesia Airway Planned: Natural Airway Monitors Used: Standard Monitors Preoperative Comments:: 63 yo male for colo. Sig PMHx: CAD (2022 with stent x 4, doing well), PE, depression, RAJANI (no CPAP, d oes not feel like he has RAJANI). never smoker, occ EtOH/cannabis (no cannabis for the past month).
[2023-08-24 06:47] VITALS: BP 114/85; PULSE 55; RESP 18; TEMP 36.5; O2SAT 99
[2023-08-24 06:59] VITALS: BMI 27.0
[2023-08-24] MEDS: Lactated Ringers 1,000 ML 80 ML IV (07:10)
--- NOTE | 2023-08-24 07:43 | BOWEL_PTH ---
PATIENT: Ant Espinosa LOC: [facility] U#:[id number] AGE/SX: 63/M ROOM: RE08/24/[address]: Olivier Gee MD : 1960 BED: DIS: 08/24/2023 SPEC #: [id number] RECD: 08/24/23 12:45 STATUS: JESSICA RE #: [id number] SUSAN: 08/24/23 07:[address]: Olivier Gee DEPT: Surgical Specimen RECD BY: Riana Baird ENTERED: 08/24/23 12:46 SP TYPE: Bowel OTHR DR: Eduarda Alfredo APRN Tissues: 1 - BIOPSY BOWEL 2 - BIOPSY BOWEL Procedures: GROSS AND MICRO LEVEL 4 Comments: [id number]
[2023-08-24 07:59] VITALS: BP 93/73; PULSE 65; RESP 16; TEMP 36.2; O2SAT 98
[2023-08-24 08:27] VITALS: BP 98/79; PULSE 52; RESP 16; TEMP 36.2; O2SAT 99
--- NOTE | 2023-08-24 08:56 | W.ANESPOSTOP ---
Postoperative Evaluation Date, Time and Location Date Performed: 08/24/23 Time Performed: 08:20 Patient Location: Day Surgery Unit Vital Signs Most Recent Imported Vital Signs: Most Recent Vital Signs Temp Pulse Resp BP Pulse Ox 36.2 C L 52 L 16 98/79 L 99 08/24/23 08:27 08/24/23 08:27 08/24/23 08:27 08/24/23 08:27 08/24/23 08:27 Pain Score Most Recent Pain Score: Most Recent Pain Score Pain Level 0 08/24/23 08:27 Assessment Mental Status: Awake (Alert & Oriented to Patient Baseline) Airway and Respiratory Function: Patent airway with normal (patient baseline) respiratory exam Cardiovascular Function: Hemodynamically Stable Hydration Status: Adequately Hydrated Nausea & Vomiting: No Nausea or Vomiting Pain: Pt. Denies Any Pain Peripheral Nerve Block: Patient did not receive a nerve block
== END 2023-08-24 08:47 | disposition home or self-care (01) ==
LOC: SUR 06:24
PROVIDERS: PCP Nurse Practitioner; Visit Provider Surgery
PROC: 0DJD8ZZ Inspection of Lower Intestinal Tract, Via Natural or Artificial Opening Endoscopic (ICD-10-PCS; CPT 45378; principal; 2023-08-24 07:30)
DX: Z12.11 Encounter for screening for malignant neoplasm of colon (principal); I25.10 Atherosclerotic heart disease of native coronary artery without angina pectoris; G47.33 Obstructive sleep apnea (adult) (pediatric); K64.8 Other hemorrhoids; D12.2 Benign neoplasm of ascending colon
CPT/HCPCS: 45385; 45380; 88305; J2704

== ENCOUNTER 2024-06-22 16:00 | Outpatient (CLI) | payer OTHER, SELFPAY ==
--- NOTE | 2024-06-22 | DI.RAD_ITS ---
Exam(s) XR HAND LT COMPLETE EXAM: XR HAND LT COMPLETE CLINICAL HISTORY: PAIN LEFT HAND M79.642. TECHNIQUE: 2D digital imaging was performed. COMPARISON: No exams were available for comparison FINDINGS: 3 views There is prominent soft tissue swelling over both the dorsal and palmar aspects of the hand. No obvi ous laceration nor radiopaque foreign body and there is no gas in the soft tissues. There is no evidence of acute fracture or dislocation. No osseous lesions nor erosions. There are a dvanced degenerative changes at the 1st carpometacarpal joint and moderate degenerative changes in th e triscaphe joint. Metacarpophalangeal joints appear unremarkable as do the interphalangeal joints. IMPRESSION: Prominent soft tissue swelling over both the dorsal and palmar aspects of the hand. There is no radi opaque foreign body. Gas in the soft tissues. Other findings as above. DATA REPOSITORY: RADIATION DOSE DELIVERED:
--- NOTE | 2024-06-22 17:01 | DI.VRAD_ITS ---
PROCEDURE INFORMATION: Exam: XR Left Hand Exam date and time: 06/22/2024 4:06 PM Age: 64 years old Clinical indication: Pain in left hand TECHNIQUE: Imaging protocol: Radiologic exam of the left hand. Views: 3 or more views. COMPARISON: US EXTREMITY VENOUS BI 12/10/2021 8:44 AM FINDINGS: Bones/joints: No evidence of acute fracture. No joint dislocation. There are significant osteoarthritic degenerative changes, with significant joint space narrowing, osteophytosis and subchondral sclerosis, predominantly at the 1st carpometacarpal joint. Joint space narrowing also noted in the distal interphalangeal joints. Soft tissues: Normal. IMPRESSION: No acute fracture or dislocation. Osteoarthritic changes noted as described. Dictated and Authenticated by: Cele Davey MD. Orderin Faye Lucas MD
== END 2024-06-22 16:20 ==
PROVIDERS: PCP Nurse Practitioner; Visit Provider Physician Assistant Medical
DX: M79.642 Pain in left hand (principal)
CPT/HCPCS: 73130

== ENCOUNTER 2024-06-23 20:32 | Emergency (ER) | payer OTHER, SELFPAY ==
[2024-06-23 20:37] VITALS: BP 152/86; PULSE 68; RESP 18; TEMP 36.9; O2SAT 98
--- NOTE | 2024-06-23 21:56 | W.ED.GENAD ---
Discharge Plan Disposition Patient Disposition: Home Condition: Stable Discharge Details Clinical Impression: Contusion of hand, left Primary Care Provider: Eduarda Alfredo ED Provider: Georgi Varma Home Meds and New Rx's Prescriptions: Continued atorvastatin 40 mg tablet 40 mg PO DAILY Qty: 90 3RF bupropion HCl [Wellbutrin XL] 150 mg tablet extended release 24 hr 150 mg PO QAM Qty: 90 3RF apixaban 5 mg tablet 5 mg PO BID Qty: 180 3RF verapamil 120 mg tablet 120 mg PO DAILY aspirin 81 mg capsule 81 mg PO DAILY Discharge Instructions Instructions: Crush Injury Additional Instructions: I did review your x-ray and while I did not see any obvious fracture there was a moderate CMC arthritis. As we discussed no obvious signs of compartment syndrome. We did discuss signs and symptoms to watch for and if they were to develop, please return immediately. Wear splint and use sling as needed, advance activity as tolerated. [id number]-[id number] medications as directed for symptomatic control. Rest, elevate, cool compresses every 2 hours for 20 minutes. Please watch for new or worsening symptoms and return immediately to the ER. Lastly, please contact your primary care provider tomorrow to discuss your recent visit to the [facility] and out to the ER and need for outpatient reevaluation. Discharge Data Discharge Date/Time-TO BE ENTERED AT DEPARTURE: 06/23/24 22:08 HPI General Mode of arrival: ambulatory. Date/Time Provider Initiated Documentation: 06/23/24 20:51. Limitations to Documentation: no limitations. Information obtained by: patient. History of Present Illness 64 year old M presents to the emergency department with the chief complaint of Left hand injury, described as severe, with intensity rated at 9. Quality is described as aching and sharp, and is localized to the left and upper extremity. Patient reports no radiation. Patient started experiencing this day(s) (3) and it has been constant. Immobilization improves symptom(s), Movement worsens symptoms . Patient notes no other symptoms.. Patient did receive the following treatments prior to arrival, other (Acetaminophen) Related Data Home Medications ?Medication ?Instructions ?Recorded ?Confirmed verapamil 120 mg tablet 120 mg PO DAILY 02/02/24 06/23/24 apixaban 5 mg tablet 5 mg PO BID #180 tabs 05/18/24 06/23/24 atorvastatin 40 mg tablet 40 mg PO DAILY #90 tabs 05/18/24 06/23/24 bupropion HCl 150 mg 24 hr tablet, 150 mg PO QAM #90 tab-caps 05/18/24 06/23/24 extended release (Wellbutrin XL) aspirin 81 mg capsule 81 mg PO DAILY 06/23/24 06/23/24 Previous Rx's ?Medication ?Instructions ?Recorded apixaban 5 mg tablet 5 mg PO BID #180 tabs 05/18/24 atorvastatin 40 mg tablet 40 mg PO DAILY #90 tabs 05/18/24 bupropion HCl 150 mg 24 hr tablet, 150 mg PO QAM #90 tab-caps 05/18/24 extended release (Wellbutrin XL) Allergies Allergy/AdvReac Type Severity Reaction Status Date / Time Sulfa (Sulfonamide Allergy Unknown unknown Verified 05/18/24 13:51 Antibiotics) General Stated Complaint: Orthopedic MOSHE: 3 Review of Systems Constitutional Constitutional: Denies fever(s) and Denies weakness Gastrointestinal Gastrointestinal: Denies nausea and Denies vomiting Musculoskeletal Musculoskeletal: Reports joint swelling, Denies numbness, Reports stiffness and Reports tingling Integumentary/Breasts Skin/Breast: Denies rash Neurologic Neurologic: Denies numbness, Reports tingling and Denies weakness Exam Const General: cooperative, healthy appearing, comfortable and no acute distress Orientation: alert, awake and oriented x3 HENMT Head: normal to inspection, normocephalic and atraumatic Mouth: moist mucous membranes Eyes Conjunctivae: conjunctivae normal Neck Neck: normal visual inspection, trachea midline and supple Resp Effort & Inspection: normal respiratory effort and able to speak in complete sentences Cardio Rate: regular rate Rhythm: regular rhythm Skin General skin exam: no rashes or lesions noted Neuro General: patient alert, patient awake, moves all extremities and no focal motor deficits Cognition: normal cognition Speech: speech normal Sensory Exam: no sensory deficits noted Extrem General: capillary refill normal Other: Left hand exam: Skin is intact without erythema, pallor, or deformity. He has moderate swelling throughout the hand as well as ecchymosis most notably about the first CMC joint. He has diffuse discomfort to direct palpation but no significant discomfort to light touch or pain out of proportion with exam. He is able to demonstrate full painless wrist range of motion. He demonstrates slightly limited extension of all digits. Demonstrates moderately limited flexion, abduction, adduction of all digits secondary to pain and swelling. He has decreased sensation about the dorsum of his hand but is able to appreciate light touch. Sensation otherwise intact. Strong radial pulse and brisk capillary refill in all digits. Psych Appearance: grossly normal Mental Status: mental status grossly normal Course Vital Signs Vital signs: Vital Signs Temperature 36.9 C 06/23/24 20:37 Pulse 68 06/23/24 20:37 Respiratory Rate 18 06/23/24 20:37 Blood Pressure 152/86 H 06/23/24 20:37 Pulse Oximetry 98 06/23/24 20:37 Temperature 36.9 C 06/23/24 20:37 Temperature Source Oral 06/23/24 20:37 Pulse 68 06/23/24 20:37 Respiratory Rate 18 06/23/24 20:37 Blood Pressure 152/86 H 06/23/24 20:37 Blood Pressure Position Sitting 06/23/24 20:37 Pulse Oximetry 98 06/23/24 20:37 Oxygen Delivery Method Room Air 06/23/24 20:37 Oxygen Flow Rate 0 06/23/24 20:37 Pain Level 9 06/23/24 20:37 Medical Decision Making 64-year-old right hand dominant gentleman presents for evaluation of a left hand injury. Drinking alcohol Thursday night, unsure of injury, pain and swelling throughout the hand, worsened today. Questions if he may have fallen versus possibly crushing in a door. Seen by urgent care yesterday, x-ray negative. Given splint. Increased pain today, no additional injury. Patient appears well, nontoxic, no acute distress. Hand with moderate swelling and ecchymosis, skin is intact. Patient is able to demonstrate good range of motion of the wrist, limited range of motion of the digits secondary to pain and swelling. Hand is without erythema, warm, signs of infection. He is afebrile. Patient with appropriate pain given the swelling and ecchymosis. Pain is certainly not a proportion. No pallor. Good capillary refill and radial pulse. Limited range of motion secondary to pain and swelling but again this appears appropriate given the injury. He does admit to some altered sensation about the dorsum of his hand but sensation is otherwise normal throughout the hand. Left hand x-ray from 05/23/2024, both images and report reviewed, moderate soft tissue swelling without evidence of acute bony abnormality. Advanced degenerative changes about the first MCP joint, moderate degenerative changes in the triscaphe joint. Discussed in length with patient. Significant hand swelling and ecchymosis likely with exacerbation of his CMC arthritis. No evidence of compartment syndrome or infection. Patient already has a volar splint and Adria wrap. Discussed conservative treatment such as bracing, rest, elevate, cool compresses, [id number] medications for discomfort. Discussed compartment syndrome and infection in length. Encouraged to return to the ER for new, worsening, or evolving symptoms. Otherwise recommend reaching out to his PCP to make them aware of his injury, express care and ER visit, need for outpatient reevaluation. Standard discharge and return precautions were provided. Patient understands, is agreeable to this plan, and has no additional questions or concerns upon discharge. This documentation was generated using [employer]ation system, please disregard any oddities of phrase or misspellings. Medical Records Medical records reviewed: Yes I reviewed the patient's medical records. Quality:SDOH Health Related Social Needs: No Data to Display PFSH All Active Problems Contusion of hand, left (Acute) Bertolotti syndrome (Acute ~04/11/24) [facility] Note 04/11/24.HE Premature ventricular contractions (Acute ~01/2024) 01/29/24 Cardiology, Dr Farmer Encounter for screening colonoscopy (Acute) Corneal abrasion, left (Acute) CAD (coronary artery disease) (Chronic) 12/01/22 pt admitted to [facility] ER with exertional CP. had PCI to prox/mid LAD, D1 and D2 RH Unstable angina pectoris (Acute) Abnormal nuclear cardiac imaging test (Acute ~11/2022) POS without infaraction Hyperlipidemia, unspecified (Chronic) 11/2021 labs: 10-year ASCVD risk = ~9.0% History of pulmonary embolus (PE) (Chronic) x2 (2019); chronic anticoagulation Chronic anticoagulation (Chronic 05/2019) Lumbar nerve root compression (Acute) Lumbar disc herniation with radiculopathy (Acute) Alcohol abuse (Chronic) Piriformis syndrome (Acute) Depressive disorder, not elsewhere classified (Chronic 05/27/12) Lumbar radiculopathy (Acute 08/24/17) [facility] secondary to stiff hip and early osteoarthritis Lumbar stenosis with neurogenic claudication (Acute) Obstructive sleep apnea (Acute 05/31/15) Mild. O2 sat jose 90% on RA, using oral appliance Periodic limb movements of sleep (Acute 05/31/15) [facility] Entrapment of left ulnar nerve (Acute 04/01/18) [facility] Medical History Hammertoe of second toe of left foot Hallux valgus with bunions of right foot Elevated blood pressure reading Avulsion fracture of ankle (~02/2020) Left, [facility] Pulmonary embolism with acute cor pulmonale (~05/2019) 05/27/19 Large (B) PE's w/ (R) heart strain Tubular adenoma of colon (07/27/13) 08/2023 Pulmonary embolus with infarction (02/28/15) xferred to [facility] (Trop, +) Surgical History Hx of colonoscopy (~08/2023) H/O left knee surgery (2006) Reconstruction Status post lumbar spine surgery for decompression of spinal cord (12/05/21) L4-L5 open removal loose body, rgt ankle (08/30/14) debridement, rgt ankle (08/30/14) Dr. Dillon Family History Mother , stroke at age 54. 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
== END 2024-06-23 22:08 | disposition home or self-care (01) ==
PROVIDERS: Emergency Provider Physician Assistant; PCP Nurse Practitioner
DX: S60.222A Contusion of left hand, initial encounter (principal); I25.10 Atherosclerotic heart disease of native coronary artery without angina pectoris; E78.5 Hyperlipidemia, unspecified; Z86.711 Personal history of pulmonary embolism; Z79.02 Long term (current) use of antithrombotics/antiplatelets; Z79.82 Long term (current) use of aspirin
CPT/HCPCS: 99283

== ENCOUNTER 2024-08-26 07:11 | Outpatient (CLI) | payer OTHER, SELFPAY ==
[2024-08-26 08:40] LABS: ALT 33 U/L (16-63); AST 23 U/L (15-37); Albumin 4.0 g/dL (3.4-5.0); Alkaline Phosphatase 77 U/L (46-116); Anion Gap 10.2 mmol/L (3-11); BUN 19 mg/dL (7-18); Bilirubin, Total 0.6 mg/dL (0.2-1.0); CO2 26.8 mmol/L (21.0-32.0); Calcium 9.4 mg/dL (8.5-10.1); Calculated LDL 93 mg/dL (<100); Chloride 106 mmol/L (98-107); Cholesterol 176 mg/dL (<200); Estimated GFR 95.37 (mL/min/1.73m2); Glucose 96 mg/dL (74-106); HDL Cholesterol 69 mg/dL (>or=40); Potassium 4.5 mmol/L (3.5-5.1); Sodium 143 mmol/L (136-145); Total Protein 7.6 g/dL (6.4-8.2); Triglyceride 72 mg/dL (<150)
== END 2024-08-26 07:12 | disposition home or self-care (01) ==
LOC: LBO 07:11
PROVIDERS: PCP Nurse Practitioner; Visit Provider Nurse Practitioner
DX: I25.10 Atherosclerotic heart disease of native coronary artery without angina pectoris (principal); E78.5 Hyperlipidemia, unspecified
CPT/HCPCS: 36415; 80053; 80061

== ENCOUNTER 2024-08-31 02:04 | Outpatient (CLI) | payer OTHER, SELFPAY ==
--- NOTE | 2024-08-31 07:15 | DI.RAD_ITS ---
Exam(s) XR KNEE LT 3V AP,LAT,JASON EXAM: XR KNEE LT 3V AP,LAT,JASON CLINICAL HISTORY: chronic worse left knee pain,M25.562. TECHNIQUE: 2D digital imaging was performed of the left knee. Three images were obtained. AP, lateral and PA tunnel views were obtained. COMPARISON: There are no priors for comparison. FINDINGS: BONES: No acute fracture is present. No bony destructive lesion is seen. There are findings of a prior ACL repair. JOINTS: Tricompartment degenerative changes are present characterized by joint space narrowing and osteophytes. There are multiple densities seen within the joint space which may represent osteochondromatosis. No joint effusion is seen. No loose body. SOFT TISSUE: Normal. IMPRESSION: 1. Marked osteoarthritis of the left knee. 2. Multiple density seen within the joint space suspicious for osteochondromatosis. DATA REPOSITORY: RADIATION DOSE DELIVERED:
== END 2024-08-31 02:24 ==
PROVIDERS: PCP Nurse Practitioner; Visit Provider Nurse Practitioner Family
DX: M25.562 Pain in left knee (principal)
CPT/HCPCS: 73562